=== PATIENT | female | born 1940 | race Caucasian/White ===

== ENCOUNTER 2022-01-22 08:45 | Outpatient (REF) | payer MEDICARE, OTHER, SELFPAY ==
[2022-01-22 10:35] LABS: Albumin Level 4.1 g/dL (3.5-5.0); Calcium 9.4 mg/dL (8.4-10.2)
[2022-01-22 11:02] LABS: Free T4 (Free Thyroxine) 0.86 ng/dL (0.71-1.85); Thyroid Stimulating Hormone 0.78 uIU/mL (0.32-4.0)
== END 2022-01-22 08:46 | disposition home or self-care (01) ==
LOC: HO.10HDL 08:45
PROVIDERS: Visit Provider Internal Medicine Endocrinology, Diabetes & Metabolism
DX: E04.2 Nontoxic multinodular goiter (principal); E21.3 Hyperparathyroidism, unspecified
CPT/HCPCS: 36415; 82040; 82310; 84439; 84443; 99202

== ENCOUNTER → 2022-09-22 08:37 | Outpatient (BNVA) | payer MEDICARE, OTHER, SELFPAY | PROVIDERS: PCP Internal Medicine; Visit Provider Internal Medicine Endocrinology, Diabetes & Metabolism | DX: E04.2 Nontoxic multinodular goiter (principal); E21.3 Hyperparathyroidism, unspecified; E20.9 Hypoparathyroidism, unspecified | CPT/HCPCS: 36415; 84100; 99212 ==

== ENCOUNTER 2022-09-22 09:54 | Outpatient (REF) | payer MEDICARE, OTHER, SELFPAY ==
[2022-09-22 12:37] LABS: Phosphorus 3.8 mg/dL (2.7-4.5)
== END 2022-09-22 09:55 | disposition home or self-care (01) ==
LOC: HO.10HDL 09:54
PROVIDERS: Visit Provider Internal Medicine Endocrinology, Diabetes & Metabolism
DX: Z13.89 Encounter for screening for other disorder (principal)
CPT/HCPCS: 36415; 84100

== ENCOUNTER 2022-09-28 09:51 | Outpatient (REF) | payer MEDICARE, OTHER, SELFPAY ==
[2022-09-28 13:28] LABS: Creatinine, mg/dL 70.45
[2022-09-28 14:02] LABS: Creatinine, 24Hr Urine 0.7 G/Day (1.0-2.0); Total Volume 24 Hour Urine 925 mL
[2022-09-29 20:28] LABS: Calcium, 24 Hr Urine 83 mg/24 h; Calcium/Creatinine Ratio 136 mg/g creat (30-275); Creatinine 24Hr Urine 0.61 g/24 h (0.50-2.15)
== END 2022-09-28 09:52 | disposition home or self-care (01) ==
LOC: HO.10HDLNP 09:51
PROVIDERS: Visit Provider Internal Medicine Endocrinology, Diabetes & Metabolism
DX: E20.9 Hypoparathyroidism, unspecified (principal)
CPT/HCPCS: 82340; 82570

== ENCOUNTER 2022-10-14 08:13 | Outpatient (REF) | payer MEDICARE, OTHER, SELFPAY ==
--- NOTE | ~2022-10-14 | US_ITS ---
EXAMINATION: US THYROID CLINICAL INFORMATION: Nontoxic multinodular goiter. History of parathyroidectomy and reimplantation left forearm. COMPARISON: None available. TECHNIQUE: Linear transducer grayscale and color Doppler examination with attention to the region of the thyroid. FINDINGS: SIZE: Measurements of the thyroid lobes and nodules are given in sagittal, anteroposterior and transverse dimensions respectively. Right Thyroid Lobe: 8.4 x 4.0 x 4.4 cm, volume 77.1 mL. Parenchyma: The gland echotexture is heterogeneous. Thyroid vascularity is increased. Left Thyroid Lobe: 6.9 x 4.2 x 4.1 cm, volume 62.4 mL. Parenchyma: The gland echotexture is heterogeneous. Thyroid vascularity is hypervascular. Isthmus: 1.4 cm in maximum AP dimension. Estimated total number of nodules greater than or equal to 1 cm: 4. Base Manager nodules are described as follows: 1. Location: Right midpole. Size: 3.4 x 1.8 x 3.3 cm, volume 10.6 mL. Nodule characteristics: Composition: Solid/almost completely solid (2). Echogenicity: Hyperechoic (1). Shape: Not taller than wide (0). Margins: Smooth (0). Echogenic Foci: None (0). ACR TI-RADS total points: 3. ACR TI-RADS category: 3. 2. Location: Right lower pole. Size: 2.7 x 1.6 x 2.8 cm, volume 6.3 mL. Nodule characteristics: Composition: Solid/almost completely solid (2). Echogenicity: Hyperechoic (1). Shape: Not taller than wide. Margins: Smooth (0). Echogenic Foci: Microcalcifications. ACR TI-RADS total points: 4. ACR TI-RADS category: 4. 3. Location: Left midpole. Size: 4.2 x 2.0 x 4.6 cm, volume 20.0 mL. Nodule characteristics: Composition: Solid/almost completely solid (2). Echogenicity: Hyperechoic (1). Shape: Not taller than wide (0). Margins: Smooth (0). Echogenic Foci: None. ACR TI-RADS total points: 3. ACR TI-RADS category: 3. 4. Location: Left lower pole. Size: 4.1 x 2.7 x 3.8 cm, volume 22.5 mL. Nodule characteristics: Composition: Solid/almost completely solid (2). Echogenicity: Hyperechoic (1). Shape: Not taller than wide (0). Margins: Smooth (0). Echogenic Foci: None. ACR TI-RADS total points: 3. ACR TI-RADS category: 3. The largest 4 nodules were measured. US/US thyroid IMPRESSION: 4 large thyroid nodules. By ACR BI-RADS recommendation a 6 month follow-up can be performed ACR TI-RADS RECOMMENDATION REFERENCE: Ultrasound-guided fine-needle aspiration, followup ultrasound, no further follow up. * TR1 (0 point) and TR2 (2 points): No FNA or follow up * TR3 (3 points): FNA if more than or equal to 2.5 cm in maximum dimension, followup ultrasound in 1, 3 and 5 years if 1.5 to 2.4 cm in maximum dimension. * TR4 (4-6 points): FNA if more than or equal to 1.5 cm in maximum dimension, followup ultrasound in 1, 2, 3 and 5 years if 1 to 1.4 cm in maximum dimension. * TR5 (more than or equal to 7 points): FNA if more than or equal to 1 cm in maximum dimension, followup ultrasound every year for 5 years if 0.5 to 0.9 cm in maximum dimension. * TR3, TR4 or TR5 nodules that are below the size threshold for follow up receive no follow up. IMPRESSION: Enlarged thyroid gland with multiple bilateral thyroid nodules. The largest nodules are measured.
== END 2022-10-14 08:14 | disposition home or self-care (01) ==
LOC: HO.US 08:13
PROVIDERS: PCP Internal Medicine; Visit Provider Internal Medicine Endocrinology, Diabetes & Metabolism
DX: E04.2 Nontoxic multinodular goiter (principal)
CPT/HCPCS: 76536

== ENCOUNTER 2023-09-23 10:48 | Outpatient (AMB) | payer MEDICARE, OTHER, SELFPAY ==
--- NOTE | 2023-09-23 11:08 | MHC.OFFVIS ---
Intake Vital Signs 09/23/23 11:09 Height 5 ft 6 in Weight 120 lb 5.958 oz BMI 19.4 BP 102/64 Blood Pressure Location Lt brachial Position Sitting Pulse 76 Pulse Source Pulse Oximeter Intake Visit Reasons: MNG F/U-confirmed Intake Note: Patient present today for MNG follow up visit. 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 Wiggins and Dr. webb who is seen in consultation for multinodular thyroid at the request of PCP. Was initially diagnosed with multinodular thyroid in 1987 with thyroid US revealing multiple nodules. Currently denies any dysphagia or hoarseness of voice. Denies sensation of swelling in the neck or difficulty breathing while lying flat. Denies any tenderness in the neck. Denies any palpitations, tremors, weight loss, frequent bowel movements. Denies any ocular complaints, blurred or double vision. Denies hair loss, dry skin, heat or cold intolerance, weight gain, confusion. Denies any history of head or neck irradiation. Denies any family history of thyroid cancer. ? mother has thyroid problems Had biopsy of nodules in the past. Unfortunately, none of the records from the biopsy or pathology is available time consult. Patient self reports that she had a biopsy of left side thyroid nodule is benign and 2018 she had 3 nodules on the right biopsy that was benign and a larger 1 left that was indeterminate Thyroid US: Multiple bilateral thyroid nodules with the largest being in the right lobe being 2.6 x 2.2 x 2.3 cm and the left upper pole being 3.9 x 2.0 x 3.9 cm Labs: Status post left lobectomy by Dr. Greene with benign pathology. A total thyroidectomy was not performed because of previous parathyroid surgery and concern of complication [facility] Medical History (Updated 09/23/23 @ 11:33 by Allen Bee MD) Non-toxic multinodular goiter Hypoparathyroidism Surgical History History of biopsy Hx of basal cell carcinoma excision Hx of endoscopy History of surgery Hx of cataract surgery Hx of melanoma excision Hx of hernia repair Hx of parathyroidectomy Hx of cholecystectomy History of surgery Family History Mother No problems noted. Father Pancreatic cancer Social History Alcohol intake: current Patient Tobacco Use Status: Never used Tobacco Physical Exam Const Other: Healing scar status post left lobectomy Assessment & Plan Assessment & Plan (1) Multinodular goiter (nontoxic): Code(s): E04.2 - Nontoxic multinodular goiter Plan: This 83-year-old white female with a history of primary hyperparathyroidism status post removal of 3-1/2 glands with forearm transplantation as well as multinodular goiter with dominant nodules on both sides status post FNA multiple times. Status post left lobectomy with benign pathology. Plan is to check TSH and free T4 (2) Hyperparathyroidism: Code(s): E21.3 - Hyperparathyroidism, unspecified Plan: Plan for hypoparathyroidism (3) Hypoparathyroidism: Code(s): E20.9 - Hypoparathyroidism, unspecified Plan: Status post parathyroidectomy with hypoparathyroidism. Calcium is low normal on calcitriol and calcium supplementation. Will check calcium albumin and phosphorus keep calcium low normal Orders: Orders Calcium Today E20.9 - Hypoparathyroidism, unspecified Albumin Level Today E20.9 - Hypoparathyroidism, unspecified Phosphorus Today E20.9 - Hypoparathyroidism, unspecified Free T4 (Free Thyroxine) Today E04.2 - Nontoxic multinodular goiter, E20.9 - Hypoparathyroidism, unspecified Thyroid Stimulating Hormone Today E04.2 - Nontoxic multinodular goiter, E20.9 - Hypoparathyroidism, unspecified Coding Level of Care Code Est Pt Level 3 (10266) Diagnoses Multinodular goiter (nontoxic) E04.2 Hyperparathyroidism E21.3 Hypoparathyroidism E20.9
[2023-09-23 11:09] VITALS: BP 102/64; PULSE 76; BMI 19.4
== END 2023-09-23 11:58 | disposition home or self-care (01) ==
PROVIDERS: PCP Internal Medicine; Visit Provider Internal Medicine Endocrinology, Diabetes & Metabolism
DX: E04.2 Nontoxic multinodular goiter (principal); E21.3 Hyperparathyroidism, unspecified; E20.9 Hypoparathyroidism, unspecified
CPT/HCPCS: 99213

== ENCOUNTER → 2023-09-23 10:48 | Outpatient (BNVA) | payer MEDICARE, OTHER, SELFPAY | PROVIDERS: PCP Internal Medicine; Visit Provider Internal Medicine Endocrinology, Diabetes & Metabolism | DX: E20.9 Hypoparathyroidism, unspecified (principal); E04.2 Nontoxic multinodular goiter; E21.3 Hyperparathyroidism, unspecified | CPT/HCPCS: 99212 ==

== ENCOUNTER 2023-10-12 14:43 | Outpatient (REF) | payer MEDICARE, OTHER, SELFPAY ==
[2023-10-12 16:00] LABS: Albumin Level 3.7 g/dL (3.5-5.0)
[2023-10-12 16:19] LABS: Free T4 (Free Thyroxine) 0.77 ng/dL (0.71-1.85); Thyroid Stimulating Hormone 1.41 uIU/mL (0.32-4.0)
== END 2023-10-12 14:44 | disposition home or self-care (01) ==
LOC: HO.LAB 14:43
PROVIDERS: PCP Internal Medicine; Visit Provider Internal Medicine Endocrinology, Diabetes & Metabolism
DX: E20.9 Hypoparathyroidism, unspecified (principal); E04.2 Nontoxic multinodular goiter
CPT/HCPCS: 36415; 82040; 82310; 84100; 84439; 84443

== ENCOUNTER 2024-02-23 10:44 | Outpatient (AMB) | payer MEDICARE, OTHER, SELFPAY ==
[2024-02-23 10:46] VITALS: BP 132/68; PULSE 77; BMI 21.5
--- NOTE | 2024-02-23 10:46 | MHC.OFFVIS ---
Vital Signs 02/23/24 10:46 Height 5 ft 6 in Weight 133 lb 6.075 oz BMI 21.5 BP 132/68 Blood Pressure Location Lt brachial Position Sitting Pulse 77 Pulse Source Pulse Oximeter Intake Visit Reasons: MNG Intake Note: Patient present today for MNG follow up visit. 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 Wiggins and Dr. webb who is seen in consultation for multinodular thyroid at the request of PCP. Was initially diagnosed with multinodular thyroid in 1987 with thyroid US revealing multiple nodules. Currently denies any dysphagia or hoarseness of voice. Denies sensation of swelling in the neck or difficulty breathing while lying flat. Denies any tenderness in the neck. Denies any palpitations, tremors, weight loss, frequent bowel movements. Denies any ocular complaints, blurred or double vision. Denies hair loss, dry skin, heat or cold intolerance, weight gain, confusion. Denies any history of head or neck irradiation. Denies any family history of thyroid cancer. ? mother has thyroid problems Had biopsy of nodules in the past. Unfortunately, none of the records from the biopsy or pathology is available time consult. Patient self reports that she had a biopsy of left side thyroid nodule is benign and 2018 she had 3 nodules on the right biopsy that was benign and a larger 1 left that was indeterminate Thyroid US: Multiple bilateral thyroid nodules with the largest being in the right lobe being 2.6 x 2.2 x 2.3 cm and the left upper pole being 3.9 x 2.0 x 3.9 cm Labs: Status post left lobectomy by Dr. Greene with benign pathology. A total thyroidectomy was not performed because of previous parathyroid surgery and concern of complication [facility] Medical History (Updated 09/23/23 @ 11:33 by Allen Bee MD) Non-toxic multinodular goiter Hypoparathyroidism Surgical History History of biopsy Hx of basal cell carcinoma excision Hx of endoscopy History of surgery Hx of cataract surgery Hx of melanoma excision Hx of hernia repair Hx of parathyroidectomy Hx of cholecystectomy History of surgery Family History Mother No problems noted. Father Pancreatic cancer Social History Alcohol intake: current Patient Tobacco Use Status: Never used Tobacco Physical Exam Const Other: Healing scar status post left lobectomy Assessment & Plan Assessment & Plan (1) Multinodular goiter (nontoxic): Code(s): E04.2 - Nontoxic multinodular goiter Category: Medical Plan: This 83-year-old white female with a history of primary hyperparathyroidism status post removal of 3-1/2 glands with forearm transplantation as well as multinodular goiter with dominant nodules on both sides status post FNA multiple times. Status post left lobectomy with benign pathology. Appears to be clinically and biochemically euthyroid Plan is to have patient follow-up with Dr. Swain in expert thyroid ultrasound was during our practice in a February 2024 endocrine repeat the thyroid ultrasound (2) Hypoparathyroidism: Code(s): E20.9 - Hypoparathyroidism, unspecified Category: Medical Plan: Status post parathyroidectomy with hypoparathyroidism. Calcium is low normal on calcitriol and calcium supplementation. Will continue current management Coding Level of Care Code Est Pt Level 3 (52702) Diagnoses Multinodular goiter (nontoxic) E04.2 Hypoparathyroidism E20.9
== END 2024-02-23 11:09 | disposition home or self-care (01) ==
PROVIDERS: PCP Internal Medicine; Visit Provider Internal Medicine Endocrinology, Diabetes & Metabolism
DX: E04.2 Nontoxic multinodular goiter (principal); E20.9 Hypoparathyroidism, unspecified
CPT/HCPCS: 99213

== ENCOUNTER → 2024-02-23 10:44 | Outpatient (BNVA) | payer MEDICARE, OTHER, SELFPAY | PROVIDERS: PCP Internal Medicine; Visit Provider Internal Medicine Endocrinology, Diabetes & Metabolism | DX: E04.2 Nontoxic multinodular goiter (principal); E20.9 Hypoparathyroidism, unspecified | CPT/HCPCS: 99212 ==

== ENCOUNTER 2024-09-21 08:45 | Outpatient (AMB) | payer MEDICARE, OTHER, SELFPAY ==
--- NOTE | 2024-09-21 08:50 | A.OFFVIS_ITS ---
Vital Signs 09/21/24 08:53 Height 5 ft 6 in Weight 131 lb 9.855 oz BMI 21.2 BP 116/72 Blood Pressure Location Lt brachial Position Sitting Pulse 77 Pulse Source Pulse Oximeter Pulse Oximetry (%) 98 Oxygen Delivery Method Room Air Intake Visit Reasons: MNG/hypoparathyroidism Intake Note: Patient present today for MNG and hypoparathyroidism office visit. 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 Accompanied by: Self / Same As Patient Allergies codeine Allergy (Unknown, Verified 09/21/24 08:54) stomach pain latex Allergy (Unknown, Verified 09/21/24 08:54) Rash Penicillins Allergy (Unknown, Verified 09/21/24 08:54) Diarrhea Medication List - Last Reconciled 09/21/24 by Carola Swain MD calcitriol 0.25 mcg PO Q OTHER DAY cholecalciferol (vitamin D3) 25 mcg PO DAILY dorzolamide-timolol 22.3-6.8 mg/mL ophthalmic (eye) ONCE PRN pravastatin 20 mg PO DAILY verapamil 120 mg PO BID HPI Comments Details: 84-year-old female with past medical history significant for 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 Wanda Greene at [facility] with benign pathology, who is being followed for right-sided thyroid nodules. Also has history of primary hyperparathyroidism status post 3-1/2 gland parathyroidectomy at [facility] in 1983, status post completion p arathyroidectomy at [facility] in October 2002 with removal of parathyroid remnant an approximately 30 mg fragment autotransplantation into the left forearm by Dr. Roblero. Now followed for hyperparathyroidism as well. Multinodular goiter Diagnosed with thyroid nodules in Had biopsy of nodules in the past, no old records of biopsy available. Apparently had biopsy in 1997 of a left-sided nodule which was benign Apparently sometime in the past a biopsy of this left-sided nodule also yielded microfollicular cytology (? Flus or follicular neoplasm? ). However when she was undergoing completion parathyroidectomy in 2002, the surgeon was reluctant to perform plan thyroidectomy for multinodular goiter as the parathyroid remnant was adherent to the right recurrent laryngeal nerve. 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 In 2019, a follow up ultrasound of her goiter/nodule showed increase in size of some of her nodules. 08/31/2018: FNA of the dominant 3.2 cm right midpole and 5.2 cm left midpole nodules was done, cytology of the right lobe was benign, cytology of the left lobe was AUS, Afirma came back suspicious for malignancy category. No aggressive/fusion mutations. 08/29/2021: Neck ultrasound at [facility] described multiple bilateral thyroid nodules including 2.6 cm right inferior pole and 2.1 cm right midpole TR 4 nodules, and a 3.9 cm left superior pole and 3.6 cm left inferior pole TR 3 nodules. 10/14/2022: Thyroid ultrasound at [place] [facility] described 3.4 cm TR 3 right midpole nodule, 2.8 cm TR 4 right inferior pole nodule, 4.6 cm TR 3 left midpole nodule and a 4.1 cm TR 3 left inferior pole nodule. She was subsequently referred to Dr. Wanda Greene at [facility] for evaluation for thyroidectomy. No compressive symptoms apparently at that time. It was decided at that time to proceed with left lobectomy as there was a concern of severe paratracheal scarring in the setting of prior surgeries. No personal history of head or neck radiation, no family history of thyroid cancers or endocrine tumors. 08/10/2023 status post left lobectomy with Dr. Wanda Greene at [facility]: Pathology showed follicular nodular disease with nodules Interval history 2015 esophagus nicked during surgery , on and off trouble swallowing not concerning to her No other compressive symptoms No recent TFTs, intermittent diarrhea and constipation with IBS , following with GI no heat or cold intolerance No excessive fatigue Hypoparathyroidism Status post 3-1/2 gland parathyroidectomy at [facility] in 1983 for primary hyperparathyroidism status post completion parathyroidectomy at [facility] in October 2002 with removal of parathyroid dominant and proximately 30 mg fragment autotransplantation in the left forearm by Dr. Wright. Enlarged parathyroid remnant was described to be adherent to the right recurrent laryngeal nerve. Despite autotransplantation of the parathyroid she developed postoperative hypoparathyroidism and has remained on calcitriol 0.5 mcg daily and calcium supplements. Interval history Currently not on any calcium supplements On calcitriol o.25 mcg every other day and 1000 units of vitamin D daily In the morning some paresthesias in her hands more so on the right No recent calcium level in our system Milk not regulary Yogurt one serving activia daily Cheese here and there no fractures Has osteoporosis?? Gets bone density at her obgyn Dr. Soto, not on treatment per patient after discussion with Dr. Soto treatment wasnt warranted? Laboratory Tests 09/28/22 10/12/23 08:00 15:00 Calcium 9.0 Phosphorus 4.0 Albumin 3.7 TSH 1.41 Free T4 0.77 Ur 24 Hour Volume 925 Ur Creatinine mg/dL 70.45 Ur Creatinine 24 Hour 0.7 L Ur Calcium 24 Hr 83 Calcium/Creat 24 Hr 136 US THYROID 10/14/22 CLINICAL INFORMATION: Nontoxic multinodular goiter. History of parathyroidectomy and reimplantation left forearm. COMPARISON: None available. TECHNIQUE: Linear transducer grayscale and color Doppler examination with attention to the region of the thyroid. FINDINGS: SIZE: Measurements of the thyroid lobes and nodules are given in sagittal, anteroposterior and transverse dimensions respectively. Right Thyroid Lobe: 8.4 x 4.0 x 4.4 cm, volume 77.1 mL. Parenchyma: The gland echotexture is heterogeneous. Thyroid vascularity is increased. Left Thyroid Lobe: 6.9 x 4.2 x 4.1 cm, volume 62.4 mL. Parenchyma: The gland echotexture is heterogeneous. Thyroid vascularity is hypervascular. Isthmus: 1.4 cm in maximum AP dimension. Estimated total number of nodules greater than or equal to 1 cm: 4. Goal Umpire nodules are described as follows: 1. Location: Right midpole. Size: 3.4 x 1.8 x 3.3 cm, volume 10.6 mL. Nodule characteristics: Composition: Solid/almost completely solid (2). Echogenicity: Hyperechoic (1). Shape: Not taller than wide (0). Margins: Smooth (0). Echogenic Foci: None (0). ACR TI-RADS total points: 3. ACR TI-RADS category: 3. 2. Location: Right lower pole. Size: 2.7 x 1.6 x 2.8 cm, volume 6.3 mL. Nodule characteristics: Composition: Solid/almost completely solid (2). Echogenicity: Hyperechoic (1). Shape: Not taller than wide. Margins: Smooth (0). Echogenic Foci: Microcalcifications. ACR TI-RADS total points: 4. ACR TI-RADS category: 4. 3. Location: Left midpole. Size: 4.2 x 2.0 x 4.6 cm, volume 20.0 mL. Nodule characteristics: Composition: Solid/almost completely solid (2). Echogenicity: Hyperechoic (1). Shape: Not taller than wide (0). Margins: Smooth (0). Echogenic Foci: None. ACR TI-RADS total points: 3. ACR TI-RADS category: 3. 4. Location: Left lower pole. Size: 4.1 x 2.7 x 3.8 cm, volume 22.5 mL. Nodule characteristics: Composition: Solid/almost completely solid (2). Echogenicity: Hyperechoic (1). Shape: Not taller than wide (0). Margins: Smooth (0). Echogenic Foci: None. ACR TI-RADS total points: 3. ACR TI-RADS category: 3. The largest 4 nodules were measured. US/US thyroid IMPRESSION: 4 large thyroid nodules. By ACR BI-RADS recommendation a 6 month follow-up can be performed [facility] Medical History (Updated 09/21/24 @ 09:41 by Carola Swain MD) Osteoporosis Non-toxic multinodular goiter Hypoparathyroidism Surgical History History of biopsy Hx of basal cell carcinoma excision Hx of endoscopy History of surgery Hx of cataract surgery Hx of melanoma excision Hx of hernia repair Hx of parathyroidectomy Hx of cholecystectomy History of surgery Family History Mother No problems noted. Father Pancreatic cancer Social History Alcohol intake: current Patient Tobacco Use Status: Never used Tobacco Physical Exam Vital Signs: Last Vital Signs Pulse 77 09/21/24 08:53 BP 116/72 09/21/24 08:53 Pulse Ox 98 09/21/24 08:53 Oxygen Delivery Method Room Air 09/21/24 08:53 BMI result Body Mass Index 21.2 Assessment & Plan Assessment & Plan (1) Non-toxic multinodular goiter: Code(s): E04.2 - Nontoxic multinodular goiter Category: Medical Plan: 84-year-old female with no family history of thyroid cancer, with no personal history of head or neck radiation, with nontoxic multinodular goiter diagnosed in the , who is status post left lobectomy with Dr. Wanda Greene at [facility] in July 2023 with benign pathology showing follicular nodular disease, who is here today for follow up of right-sided nodules. She has not had a follow up ultrasound since her surgery in 2023. We will obtain 1. Also did not require levothyroxine after the surgery. Currently does not have any concerning compressive symptoms or symptoms of hypo or hyperthyroidism. Plan: -ordered ultrasound of the thyroid -ordered TSH and free T4 (2) Hypoparathyroidism: Code(s): E20.9 - Hypoparathyroidism, unspecified Category: Medical Qualifiers: Hypoparathyroidism type: other hypoparathyroidism Qualified Code(s): E20.89 - Other specified hypoparathyroidism Plan: 84-year-old female with history of primary hyperparathyroidism status post 3- 1/2 gland parathyroidectomy at [facility] in 1983 for primary hyperparathyroidism status post completion parathyroidectomy at [facility] in October 2002 with removal of parathyroid dominant and proximately 30 mg fragment autotransplantation in the left forearm by Dr. Wright. Enlarged parathyroid remnant was described to be adherent to the right recurrent laryngeal nerve. Despite autotransplantation of the parathyroid she developed postoperative hypoparathyroidism and has remained on calcitriol 0.5 mcg daily and calcium supplements after. Currently she is not on any calcium supplements, taking calcitriol 0.25 mcg every other day and 1000 units of vitamin-D daily. She does have some intermittent symptoms of paresthesias in her hands. No recent calcium levels in the system but she says when she had blood work done with primary Care, no concerns about low calcium levels. We will obtain these. She also has a history of osteoporosis, follows with OBGYN, Dr. Raymond Soto, and gets bone density is regularly with the him done at [facility], and apparently per patient did not warrant treatment for borderline osteoporosis. I will obtain the records for these. Plan: -continue calcitriol 0.25 mcg every other day -continue 1000 units of vitamin-D daily -obtain blood work with calcium, PTH, albumin, phosphorus, BMP levels, given history of osteoporosis we will also check bone resorption markers -obtain records from OBGYN and bone densities -follow up in 8 weeks to discuss results (3) Osteoporosis: Code(s): M81.0 - Age-related osteoporosis without current pathological fracture Category: Medical Qualifiers: Osteoporosis type: age-related Presence of current pathological fracture: without current pathological fracture Qualified Code(s): M81.0 - Age- related osteoporosis without current pathological fracture Plan: See above Plan I spent 30 minutes in reviewing the record, seeing the patient and documenting in the medical record. Orders: Orders US thyroid Today E04.2 - Nontoxic multinodular goiter Free T4 (Free Thyroxine) Today E04.2 - Nontoxic multinodular goiter Albumin Level Today E20.9 - Hypoparathyroidism, unspecified Calcium Today E20.9 - Hypoparathyroidism, unspecified Vitamin D 25-OH Total Today E20.9 - Hypoparathyroidism, unspecified Basic Metabolic Panel Today E20.9 - Hypoparathyroidism, unspecified Alkaline Phosphatase Bone Today M81.0 - Age-related osteoporosis without current pathological fracture Thyroid Stimulating Hormone Today E04.2 - Nontoxic multinodular goiter Phosphorus Today E20.9 - Hypoparathyroidism, unspecified Parathyroid Hormone Intact Today E20.9 - Hypoparathyroidism, unspecified Collagen Type I C-Telopeptide Today M81.0 - Age-related osteoporosis without current pathological fracture Patient Instructions: Do blood work today as soon as you are done with my appointment before eating anything Do ultrasound of the thyroid, someone we will call you to schedule this follow up in 8 weeks to discuss results Continue vitamin-D 1000 units daily and calcitriol 0.25 mcg every other day as you are already taking Coding Level of Care Code Est Pt Level 4 (54201) Diagnoses Non-toxic multinodular goiter E04.2 Other hypoparathyroidism E20.89 Hypoparathyroidism type: other hypoparathyroidism Age-related osteoporosis without current pathological fracture M81.0 Osteoporosis type: age-related Presence of current pathological fracture: without current pathological fracture Time Spent (min) 30
[2024-09-21 08:53] VITALS: BP 116/72; PULSE 77; O2SAT 98; BMI 21.2
--- OUTSIDE RECORDS SUMMARY | 2024-09-21 09:25 | XMS_ITS | Patient Health Record ---
Author Organization [facility] Address [address] [place] [address] Care Team Providers Care Route Manager Name Role Phone Tavon Cochran Unavailable [phone] Scotty PINEDA, Shashank Unavailable Unavailable Reason For Referral No Information Medications Medication SIG (Take, Route, Frequency, Duration) Notes Start Date End Date Status Vitamin D3 (cholecalciferol (vitamin d3)) 09/06/2012 Active Tylenol (acetaminophen) 09/06/2012 Active pravastatin 09/06/2012 Active Ocuvite (vit c-vit e-oixnkc-mwx-om-3) 09/06/2012 Active hydroCHLOROthiazide 12.5 MG 1 tablet by mouth every morning Oral 09/06/2012 Active Travatan Z (travoprost) 09/06/2012 Active Advil (ibuprofen) 09/06/2012 A ctive Verapamil 09/06/2012 Active labetalol 09/06/2012 Active Calcitriol Take 1 capsule by mouth twice a day 14 09/06/2012 Active Acidophilus (l.acidoph & sali-b.bif-s.therm) 09/06/2012 Active Problems Problem Type SNOMED Code ICD Code Onset Dates Problem Status W/U Status Risk Notes Problem 784.7-Epistaxi s (784.7) 09/06/2012 Active confirmed Problem Allergic rhinitis (96075409) 477.9-Rhinitis Allergic (477.9) 09/06/2012 Active confirmed Plan Of Treatment No Information Insurance Providers Payer Name Payer Address Payer Phone Subscriber Number Group Number Insured Name Patient Relationship to Insured Coverage Start Date Coverage End Date Medicare Part B [employer] [address] [place] [phone] [id number] Kaitlyn Sotelo Self - patient is the insured [facility] [address] [address] [place] [address] [phone] [id number] Kaitlyn Sotelo Self - patient is the insured Medical (General) History Surgical History Surgery Date(Month/Year) Skin Cancer Removed Hernia repair Tonsillectomy gall bladder Parathyroidectomy
--- OUTSIDE RECORDS SUMMARY | 2024-09-21 09:25 | XMS_ITS | Clinical Summary ---
Author Organization [facility] Address [address] [place] [address] Care Team Providers Care Licensed Massage Therapist Name Role Phone Unavailable Primary Care Provider Unavailabl e Social History Tobacco Use Types Packs/Day Years Used Date Smoking Tobacco: Never Assessed Comments Unknown Sex and Gender Information Value Date Recorded Sex Assigned at Not on file Legal Sex Female 7:31 PM EST Gender Identity Not on file Sexual Orientation Not on file Plan of Treatment Upcoming Encounters Date Type Department Care Team ([facility] st Contact Info) Description 11/15/2024 1:40 PM EDT Office Visit Gastroenterology - [address] [place] [address] [phone] Karrie Gutierrez MD [address] [facility] [address] [place] [address] Health Maintenance Due Date Last Done Comments DTaP,Tdap,and Td Vaccines (1 - Tdap) 1960 Pneumococcal Vaccine: 50+ Ye ars (1 of 1 - PCV) 1991 Zoster Vaccines (1 of 2) 1991 RSV Immunization Patients 60 + Years Old (1 - 1-dose 75+ series) 2016 Depression Screening 06/20/2022 Falls Risk Assessment 06/20/2022 Medicare Annual Wellness Visit 06/20/2022 Osteoporosis Screening (Bone Density Screening) 06/20/2022 Social Influencers of Health Screening 06/20/2022 COVID-19 Vaccine ( - 2023-2 5 season) 2024 Influenza Vaccine (#1) 2024 HIB Vaccines Aged Out No longer eligi ble based on patient's age to complete this topic HPV Vaccines Aged Out No longer eligi ble based on patient's age to complete this topic Hepatitis A Vaccines Aged Out No long er eligible based on patient's age to complete this topic Hepatitis B Vaccines Aged Out No long er eligible based on patient's age to complete this topic IPV Vaccines Aged Out No longer eligi ble based on patient's age to complete this topic MMR Vaccines Aged Out No longer eligi ble based on patient's age to complete this topic Meningococcal ACWY Vaccine Aged Out N o longer eligible based on patient's age to complete this topic Meningococcal B Vacine Aged Out No lo nger eligible based on patient's age to complete this topic RSV Immunization Patients Un andrew 20 months Aged Out No longer eligible b ased on patient's age to complete this topic Varicella Vaccines Aged Out No longer eligible based on patient's age to complete this topic Insurance MEDICARE
== END 2024-09-21 09:27 | disposition home or self-care (01) ==
PROVIDERS: PCP Internal Medicine; Visit Provider Student in an Organized Health Care Education/Training Program
DX: E04.2 Nontoxic multinodular goiter (principal); E20.89 Other specified hypoparathyroidism; M81.0 Age-related osteoporosis without current pathological fracture
CPT/HCPCS: 99214

== ENCOUNTER 2024-09-21 09:30 | Outpatient (REF) | payer MEDICARE, OTHER, SELFPAY ==
--- OUTSIDE RECORDS SUMMARY | 2024-09-21 10:46 | XMS_ITS | Clinical Summary ---
Author Organization [facility] Address [address] [place] [address] Care Team Providers Care Securities Lending Trader Name Role Phone Unavailable Primary Care Provider Unavailabl e Social History Tobacco Use Types Packs/Day Years Used Date Smoking Tobacco: Never Assessed Comments Unknown Sex and Gender Information Value Date Recorded Sex Assigned at Not on file Legal Sex Female 7:31 PM EST Gender Identity Not on file Sexual Orientation Not on file Plan of Treatment Upcoming Encounters Date Type Department Care Team ([facility] st Contact Info) Description 11/15/2024 1:40 PM EDT Office Visit Gastroenterology - [address] [place] [address] [phone] Karrie Gutierrez MD [address] [facility] [address] [place] [address] Health Maintenance Due Date Last Done Comments [...]
[2024-09-21 11:06] LABS: Albumin Level 3.9 g/dL (3.5-5.0); Anion Gap 11 (12-20); Blood Urea Nitrogen 23 mg/dL (9-16); Calcium 9.5 mg/dL (8.4-10.2); Carbon Dioxide 28 mmol/L (22-29); Chloride 105 mmol/L (96-108); Estimated Glomerular Filt Rate 46; Glucose Random 128 mg/dL (60-115); Potassium 4.4 mmol/L (3.3-5.1); Sodium 140 mmol/L (135-145)
[2024-09-21 11:18] LABS: Parathyroid Hormone Intact 272.5 pg/mL (8.7-77.1)
[2024-09-21 11:25] LABS: Free T4 (Free Thyroxine) 0.87 ng/dL (0.71-1.85); Thyroid Stimulating Hormone 1.43 uIU/mL (0.32-4.0); Vitamin D 25-OH Total 51.3 ng/mL (>30)
[2024-09-24 20:59] LABS: Alkaline Phosphatase Bone 16.9 mcg/L (see note)
[2024-09-26 22:33] LABS: Collagen Type I C-Telopeptide 709 pg/mL (see note)
== END 2024-09-21 09:31 | disposition home or self-care (01) ==
LOC: HO.10HDL 09:30
PROVIDERS: Visit Provider Student in an Organized Health Care Education/Training Program
DX: E20.9 Hypoparathyroidism, unspecified (principal); E20.89 Other specified hypoparathyroidism; E04.2 Nontoxic multinodular goiter; M81.0 Age-related osteoporosis without current pathological fracture
CPT/HCPCS: 36415; 80048; 82040; 82306; 82523; 83970; 84075; 84100; 84439; 84443; 99212

== ENCOUNTER 2024-10-03 15:38 | Outpatient (REF) | payer MEDICARE, OTHER, SELFPAY ==
--- NOTE | ~2024-10-03 | US_ITS ---
EXAMINATION: US THYROID HISTORY: E04.2 - Nontoxic multinodular goiter TECHNIQUE: Real-time grayscale ultrasound imaging was performed and images were reviewed. COMPARISON: Comparison is made with the prior examination dated 10/14/2022. FINDINGS: SIZE: The right thyroid lobe measures 7.1 x 3.5 x 3.7 cm. The left thyroid lobe is surgically absent. FLOW: Flow to the gland is increased. ECHOGENICITY: The echotexture of the gland is heterogeneous. NODULES: Right-sided nodules are identified as described below: Nodule #: 1 Location: Midportion of the right thyroid lobe measuring 3.7 x 1.8 x 3.3 cm (previously 3.4 x 1.8 x 3.3 cm). Shape: Wider than tall (0 points) Margins: Smooth (0 points) Echotexture: Isoechoic (1 point) Composition: Mostly solid (2 points) Calcifications: None (0 points) Total points: 3 TIRADS: TR3: Mildly suspicious. Nodule #: 2 Location: Mid to lower pole measuring 1.9 x 0.9 x 2.1 cm (previously 2.1 x 1.2 x 1.8 cm). Shape: Wider than tall (0 points) Margins: Smooth (0 points) Echotexture: Hypoechoic (2 points) Composition: Mostly solid (2 points) Calcifications: None (0 points) Total points: 4 TIRADS: TR4: Moderately suspicious. US/US thyroid IMPRESSION: Right thyroid nodules as described above, similar in size to the prior study. ACR TI-RADS Guidelines TR1: Benign, No follow-up or biopsy required TR2: Not Suspicious, No biopsy indicated TR3: Mildly Suspicious, FNA if >= 2.5 cm, Follow if >= 1.5 cm TR4: Moderately Suspicious, FNA if >= 1.5 cm, Follow if >= 1.0 cm TR5: Highly Suspicious, FNA if >= 1.0 cm, Follow if >= 0.5 cm Electronically signed by: Allen Dmuont MD 10/04/2024 11:38 AM EDT
--- OUTSIDE RECORDS SUMMARY | 2024-10-03 18:27 | XMS_ITS | Clinical Summary ---
Author Organization [facility] Address [address] [place] [address] Care Team Providers Care Automobile Or Truck Rental Dispatcher Name Role Phone Unavailable Primary Care Provider Unavailabl e Social History Tobacco Use Types Packs/Day Years Used Date Smoking Tobacco: Never Assessed Comments Unknown Sex and Gender Information Value Date Recorded Sex Assigned at Not on file Legal Sex Female 7:31 PM EST Gender Identity Not on file Sexual Orientation Not on file Plan of Treatment Upcoming Encounters Date Type Department Care Team ([facility] st Contact Info) Description 11/15/2024 1:40 PM EDT Office Visit Gastroenterology - [address] [place] [address] [phone] Karrie Gutierrez MD [address] [facility] [address] [place] [address] Health Maintenance Due Date Last Done Comments [...]
--- OUTSIDE RECORDS SUMMARY | 2024-10-03 18:27 | XMS_ITS | Patient Health Record ---
Author Organization [facility] Address [address] [place] [address] Care Team Providers Care Phlebotomist Lab Assistant Name Role Phone Tavon Cochran Unavailable [phone] Scotty PINEDA, Shashank Unavailable Unavailable Reason For Referral No Information Medications Medication SIG (Take, Route, Frequency, Duration) Notes Start Date End Date Status Vitamin D3 (cholecalciferol (vitamin d3)) 09/06/2012 Active Tylenol (acetaminophen) 09/06/2012 Active pravastatin 09/06/2012 Active Ocuvite (vit c-vit n-lhivvh-zba-om-3) 09/06/2012 Active hydroCHLOROthiazide 12.5 MG 1 tablet [...] (784.7) 09/06/2012 Active confirmed Problem Allergic rhinitis ([id number]) 477.9-Rhinitis Allergic (477.9) 09/06/2012 Active confirmed Plan Of Treatment No Information Insurance Providers Payer Name Payer Address Payer Phone Subscriber Number Group Number Insured Name Patient Relationship to Insured Coverage Start Date Coverage End Date Medicare Part B [employer] [address] [place] [phone] [id number] Kaitlyn Sotelo Self - patient is the insured [facility] [address] [address] [place] [address] [phone] [id number] Kaitlyn Sotelo Self - patient is the insured Medical (General) History Surgical History Surgery Date(Month/Year) Skin Cancer Removed Hernia repair Tonsillectomy gall bladder Parathyroidectomy
== END 2024-10-03 15:39 | disposition home or self-care (01) ==
LOC: HO.US 15:38
PROVIDERS: PCP Internal Medicine; Visit Provider Student in an Organized Health Care Education/Training Program
DX: E04.2 Nontoxic multinodular goiter (principal)
CPT/HCPCS: 76536

== ENCOUNTER → 2024-10-03 15:40 | Outpatient (BNV) | payer MEDICARE, OTHER, SELFPAY | PROVIDERS: PCP Internal Medicine; Visit Provider Radiology Diagnostic Radiology | DX: E04.2 Nontoxic multinodular goiter (principal) | CPT/HCPCS: 76536 ==

== ENCOUNTER 2024-10-19 09:51 | Outpatient (REF) | payer MEDICARE, OTHER, SELFPAY ==
--- OUTSIDE RECORDS SUMMARY | 2024-10-19 10:31 | XMS_ITS | Clinical Summary ---
Author Organization [facility] Address [address] [place] [address] Care Team Providers Care Header Operator Name Role Phone Unavailable Primary Care Provider Unavailabl e Social History Tobacco Use Types Packs/Day Years Used Date Smoking Tobacco: Never Assessed Comments Unknown Sex and Gender Information Value Date Recorded Sex Assigned at Not on file Legal Sex Female 7:31 PM EST Gender Identity Not on file Sexual Orientation Not on file Plan of Treatment Upcoming Encounters Date Type Department Care Team ([facility] st Contact Info) Description 11/15/2024 1:40 PM EDT Office Visit Gastroenterology - [address] [place] [address] [phone] Karrie Gutierrez MD [address] [facility] [address] [place] [address] Health Maintenance Due Date Last Done Comments DTaP,Tdap,and Td Vaccines (1 - Tdap) 1960 Pneumococcal Vaccine: 50+ Ye ars (1 of 1 - PCV) 1991 Zoster Vaccines (1 of 2) 1991 RSV Immunization Adult Patie nts (1 - 1-dose 75+ series) 2016 Depression [...]
--- OUTSIDE RECORDS SUMMARY | 2024-10-19 10:31 | XMS_ITS | Patient Health Record ---
Author Organization [facility] Address [address] [place] [address] Care Team Providers Care Private Sector Executive Name Role Phone Tavon Cochran Unavailable [phone] Scotty PINEDA, Shashank Unavailable Unavailable Reason For Referral No Information Medications Medication SIG (Take, Route, Frequency, Duration) Notes Start Date End Date Status Vitamin D3 (cholecalciferol (vitamin d3)) 09/06/2012 Active Tylenol (acetaminophen) 09/06/2012 Active pravastatin 09/06/2012 Active Ocuvite (vit c-vit s-[id number]-rso-om-3) 09/06/2012 Active hydroCHLOROthiazide 12.5 MG 1 tablet [...] (784.7) 09/06/2012 Active confirmed Problem Allergic rhinitis (87449183) 477.9-Rhinitis Allergic (477.9) 09/06/2012 Active confirmed Plan Of Treatment No Information Insurance Providers Payer Name Payer Address Payer Phone Subscriber Number Group Number Insured Name Patient Relationship to Insured Coverage Start Date Coverage End Date Medicare Part B [employer] [address] [place] [phone] [id number] Kaitlyn Sotelo Self - patient is the insured [facility] [address] [address] [place] [address] [id number] Kaitlyn Sotelo Self - patient is the insured Medical (General) History Surgical History Surgery Date(Month/Year) Skin Cancer Removed Hernia repair Tonsillectomy gall bladder Parathyroidectomy
[2024-10-19 14:06] LABS: Albumin Level 3.8 g/dL (3.5-5.0); Anion Gap 11 (12-20); Blood Urea Nitrogen 25 mg/dL (9-16); Carbon Dioxide 28 mmol/L (22-29); Chloride 106 mmol/L (96-108); Estimated Glomerular Filt Rate > 60; Glucose Random 108 mg/dL (60-115); Phosphorus 3.7 mg/dL (2.7-4.5); Potassium 4.1 mmol/L (3.3-5.1); Sodium 141 mmol/L (135-145)
[2024-10-19 14:13] LABS: Parathyroid Hormone Intact 130.3 pg/mL (8.7-77.1)
[2024-10-19 14:16] LABS: Vitamin D 25-OH Total 51.6 ng/mL (>30)
[2024-10-20 12:39] LABS: Calcium, Ionized 4.9 mg/dL (4.7-5.5)
== END 2024-10-19 09:52 | disposition home or self-care (01) ==
LOC: HO.10HDL 09:51
PROVIDERS: Visit Provider Student in an Organized Health Care Education/Training Program
DX: E20.89 Other specified hypoparathyroidism (principal)
CPT/HCPCS: 36415; 80048; 82040; 82306; 82330; 83970; 84100

== ENCOUNTER 2024-11-16 08:47 | Outpatient (AMB) | payer MEDICARE, OTHER, SELFPAY ==
[2024-11-16 08:49] VITALS: BP 126/76; PULSE 88; O2SAT 97; BMI 21.1
--- NOTE | 2024-11-16 08:49 | MHC.OFFVIS ---
Vital Signs 11/16/24 08:49 Height 5 ft 6 in Weight 130 lb 15.273 oz BMI 21.1 BP 126/76 Blood Pressure Location Lt brachial Position Sitting Pulse 88 Pulse Source Pulse Oximeter Pulse Oximetry (%) 97 Oxygen Delivery Method Room Air Intake Visit Reasons: MNG/hypoparathyroidism Intake Note: Patient present today for MNG and hypoparathyroidism office visit. 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 Wanda Greene at [facility] with benign pathology, who is being followed for right-sided thyroid nodules. Also has history of primary hyperparathyroidism status post 3-1/2 gland parathyroidectomy at [facility] in 1983, status post completion parathyroidectomy at [facility] in October 2002 with removal of parathyroid remnant an approximately 30 mg fragment autotransplantation into the left forearm by Dr. Roblero. Now followed for hyperparathyroidism as well. Multinodular goiter Diagnosed with thyroid nodules in Had biopsy of nodules in the past, no old records of biopsy available. Apparently had biopsy in 1997 of a left-sided nodule which was benign Apparently sometime in the past a biopsy of this left-sided nodule also yielded microfollicular cytology (? Flus or follicular neoplasm? ). However when she was undergoing completion parathyroidectomy in 2002, the surgeon was reluctant to perform plan thyroidectomy for multinodular goiter as the parathyroid remnant was adherent to the right recurrent laryngeal nerve. 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 In 2019, a follow up ultrasound of her goiter/nodule showed increase in size of some of her nodules. 08/31/2018: FNA of the dominant 3.2 cm right midpole and 5.2 cm left midpole nodules was done, cytology of the right lobe was benign, cytology of the left lobe was AUS, Afirma came back suspicious for malignancy category. No aggressive/fusion mutations. 08/29/2021: Neck ultrasound at [facility] described multiple bilateral thyroid nodules including 2.6 cm right inferior pole and 2.1 cm right midpole TR 4 nodules, and a 3.9 cm left superior pole and 3.6 cm left inferior pole TR 3 nodules. 10/14/2022: Thyroid ultrasound at [place] described 3.4 cm TR 3 right midpole nodule, 2.8 cm TR 4 right inferior pole nodule, 4.6 cm TR 3 left midpole nodule and a 4.1 cm TR 3 left inferior pole nodule. She was subsequently referred to Dr. Wanda Greene at [facility] for evaluation for thyroidectomy. No compressive symptoms apparently at that time. It was decided at that time to proceed with left lobectomy as there was a concern of severe paratracheal scarring in the setting of prior surgeries. No personal history of head or neck radiation, no family history of thyroid cancers or endocrine tumors. 08/10/2023 status post left lobectomy with Dr. Wanda Greene at [facility]: Pathology showed follicular nodular disease with nodules Interval history 2015 esophagus nicked during surgery , on and off trouble swallowing not concerning to her No other compressive symptoms no heat or cold intolerance No excessive fatigue Ultrasound images reviewed from September 2024 which shows stable size of the right-sided nodules and normal TFTs from September 2024 History of Hypoparathyroidism status post resection Osteoporosis Status post 3-1/2 gland parathyroidectomy at [facility] in 1983 for primary hyperparathyroidism status post completion parathyroidectomy at [facility] in October 2002 with removal of parathyroid dominant and proximately 30 mg fragment autotransplantation in the left forearm by Dr. Wright. Enlarged parathyroid remnant was described to be adherent to the right recurrent laryngeal nerve. Despite autotransplantation of the parathyroid she developed postoperative hypoparathyroidism and has remained on calcitriol 0.5 mcg daily and calcium supplements. Interval history 09/21/24 Was taking calcitriol 0.25 mcg every other day up until 10/04/2024 and we stopped this as blood work from September 2024 showed PTH elevated Currently not on any calcium supplements On calcitriol o.25 mcg every other day and 1000 units of vitamin D daily In the morning some paresthesias in her hands more so on the right No recent calcium level in our system Milk not regulary Yogurt one serving activia daily Cheese here and there no fractures Interval history 11/16/2024 Blood work from 09/21/2024 showed PTH elevated at 272.5 with normal calcium levels on the higher side at 9.5 with albumin of 4. 10/04/2024: Asked her to stop calcitriol 0.25 mcg every other day and blood work repeated on 10/19/2024 still showed normal calcium levels of 9 with ionized calcium of 4.9, phosphorus of 3.7, albumin of 3.8, PTH intact at 130.3. Vitamin-D of 51.6. Normal kidney function. It looks like she has a recurrence of hyperparathyroidism, but given her age and history of multiple neck surgeries, were not going to consider surgery. At this point we should manage her osteoporosis, bone density records obtained from Dr. Main's office showed last bone density was February 2022 which showed osteopenia of the spine with T-score of --1.6, osteopenia of the left femoral neck with T-score of-2.1, osteoporosis of the left total hip with T-score of-2.7, osteoporosis of the left forearm with T-score of-3.4. Physical exam General: sitting comfortably in no acute distress HEENT: normocephalic/atraumatic, moist oral mucosa Neck: supple, Cardiac: normal heart sounds Pulm: normal breath sounds B/L, no added breath sounds Abd: not distended, no tenderness Extremities: no edema, no signs of myxedema Neuro: AAO x3, Speech: normal, no facial droop, moving all 4 extremities Laboratory Tests 09/28/22 10/12/23 08:00 15:00 Calcium 9.0 Phosphorus 4.0 Albumin 3.7 TSH 1.41 Free T4 0.77 Ur 24 Hour Volume 925 Ur Creatinine mg/dL 70.45 Ur Creatinine 24 Hour 0.7 L Ur Calcium 24 Hr 83 Calcium/Creat 24 Hr 136 Laboratory Tests 10/12/23 09/21/24 15:00 09:33 TSH 1.41 1.43 Free T4 0.77 0.87 Laboratory Tests 09/28/22 09/21/24 10/19/24 08:00 09:33 10:00 Creatinine 1.13 0.88 Estimated GFR 46 > 60 Calcium 9.5 9.0 Ionized Calcium 4.9 Phosphorus 4.0 3.7 Alk Phos Bone Specific 16.9 Albumin 3.9 3.8 Collgn I C-Telopeptide 709 25-OH Vitamin D Total 51.3 51.6 TSH 1.43 Free T4 0.87 PTH Intact 272.5 H 130.3 H Ur 24 Hour Volume 925 Ur Creatinine mg/dL 70.45 Ur Creatinine 24 Hour 0.7 L Ur Calcium 24 Hr 83 Calcium/Creat 24 Hr 136 EXAMINATION: US THYROID 10/03/24 HISTORY: E04.2 - Nontoxic multinodular goiter TECHNIQUE: Real-time grayscale ultrasound imaging was performed and images were reviewed. COMPARISON: Comparison is made with the prior examination dated 10/14/2022. FINDINGS: SIZE: The right thyroid lobe measures 7.1 x 3.5 x 3.7 cm. The left thyroid lobe is surgically absent. FLOW: Flow to the gland is increased. ECHOGENICITY: The echotexture of the gland is heterogeneous. NODULES: Right-sided nodules are identified as described below: Nodule #: 1 Location: Midportion of the right thyroid lobe measuring 3.7 x 1.8 x 3.3 cm (previously 3.4 x 1.8 x 3.3 cm). Shape: Wider than tall (0 points) Margins: Smooth (0 points) Echotexture: Isoechoic (1 point) Composition: Mostly solid (2 points) Calcifications: None (0 points) Total points: 3 TIRADS: TR3: Mildly suspicious. Nodule #: 2 Location: Mid to lower pole measuring 1.9 x 0.9 x 2.1 cm (previously 2.1 x 1.2 x 1.8 cm). Shape: Wider than tall (0 points) Margins: Smooth (0 points) Echotexture: Hypoechoic (2 points) Composition: Mostly solid (2 points) Calcifications: None (0 points) Total points: 4 TIRADS: TR4: Moderately suspicious. US/US thyroid IMPRESSION: Right thyroid nodules as described above, similar in size to the prior study. US THYROID 10/14/22 CLINICAL INFORMATION: Nontoxic multinodular goiter. History of parathyroidectomy and reimplantation left forearm. COMPARISON: None available. TECHNIQUE: Linear transducer grayscale and color Doppler examination with attention to the region of the thyroid. FINDINGS: SIZE: Measurements of the thyroid lobes and nodules are given in sagittal, anteroposterior and transverse dimensions respectively. Right Thyroid Lobe: 8.4 x 4.0 x 4.4 cm, volume 77.1 mL. Parenchyma: The gland echotexture is heterogeneous. Thyroid vascularity is increased. Left Thyroid Lobe: 6.9 x 4.2 x 4.1 cm, volume 62.4 mL. Parenchyma: The gland echotexture is heterogeneous. Thyroid vascularity is hypervascular. Isthmus: 1.4 cm in maximum AP dimension. Estimated total number of nodules greater than or equal to 1 cm: 4. 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 Location: Right midpole. Size: 3.4 x 1.8 x 3.3 cm, volume 10.6 mL. Nodule characteristics: Composition: Solid/almost completely solid (2). Echogenicity: Hyperechoic (1). Shape: Not taller than wide (0). Margins: Smooth (0). Echogenic Foci: None (0). ACR TI-RADS total points: 3. ACR TI-RADS category: 3. 2. Location: Right lower pole. Size: 2.7 x 1.6 x 2.8 cm, volume 6.3 mL. Nodule characteristics: Composition: Solid/almost completely solid (2). Echogenicity: Hyperechoic (1). Shape: Not taller than wide. Margins: Smooth (0). Echogenic Foci: Microcalcifications. ACR TI-RADS total points: 4. ACR TI-RADS category: 4. 3. Location: Left midpole. Size: 4.2 x 2.0 x 4.6 cm, volume 20.0 mL. Nodule characteristics: Composition: Solid/almost completely solid (2). Echogenicity: Hyperechoic (1). Shape: Not taller than wide (0). Margins: Smooth (0). Echogenic Foci: None. ACR TI-RADS total points: 3. ACR TI-RADS category: 3. 4. Location: Left lower pole. Size: 4.1 x 2.7 x 3.8 cm, volume 22.5 mL. Nodule characteristics: Composition: Solid/almost completely solid (2). Echogenicity: Hyperechoic (1). Shape: Not taller than wide (0). Margins: Smooth (0). Echogenic Foci: None. ACR TI-RADS total points: 3. ACR TI-RADS category: 3. The largest 4 nodules were measured. US/US thyroid IMPRESSION: 4 large thyroid nodules. By ACR BI-RADS recommendation a 6 month follow-up can be performed [facility] Medical History (Updated 09/21/24 @ 09:41 by Carola Swain MD) Osteoporosis Non-toxic multinodular goiter Hypoparathyroidism Surgical History History of biopsy Hx of basal cell carcinoma excision Hx of endoscopy History of surgery Hx of cataract surgery Hx of melanoma excision Hx of hernia repair Hx of parathyroidectomy Hx of cholecystectomy History of surgery Family History Mother No problems noted. Father Pancreatic cancer Social History Alcohol intake: current Patient Tobacco Use Status: Never used Tobacco Physical Exam Vital Signs: Last Vital Signs Pulse 88 11/16/24 08:49 BP 126/76 11/16/24 08:49 Pulse Ox 97 11/16/24 08:49 Oxygen Delivery Method Room Air 11/16/24 08:49 BMI result Body Mass Index 21.1 Assessment & Plan Assessment & Plan (1) Non-toxic multinodular goiter: Code(s): E04.2 - Nontoxic multinodular goiter Category: Medical Plan: 84-year-old female with no family history of thyroid cancer, with no personal history of head or neck radiation, with nontoxic multinodular goiter diagnosed in the , who is status post left lobectomy with Dr. Wanda Greene at [facility] in July 2023 with benign pathology showing follicular nodular disease, who is here today for follow up of right-sided nodules. Also did not require levothyroxine after the surgery. Currently does not have any concerning compressive symptoms or symptoms of hypo or hyperthyroidism. Most recent thyroid ultrasound from September 2024 showed stable size of the right-sided nodules as well as normal TFTs. At this point she has had these nodules for a long period of time that have remained stable in the right dominant nodule was previously benign on biopsy, I will plan to repeat an ultrasound in 2 to 3 years or so. Plan: -next thyroid ultrasound should be done in September 2026 or 2027 (2) Hypoparathyroidism: Code(s): E20.9 - Hypoparathyroidism, unspecified Category: Medical Qualifiers: Hypoparathyroidism type: other hypoparathyroidism Qualified Code(s): E20.89 - Other specified hypoparathyroidism Plan: 84-year-old female with history of primary hyperparathyroidism status post 3-1/2 gland parathyroidectomy at [facility] in 1983 for primary hyperparathyroidism status post completion parathyroidectomy at [facility] in October 2002 with removal of parathyroid dominant and proximately 30 mg fragment autotransplantation in the left forearm by Dr. Wright. Enlarged parathyroid remnant was described to be adherent to the right recurrent laryngeal nerve. Despite autotransplantation of the parathyroid she developed postoperative hypoparathyroidism and has remained on calcitriol 0.5 mcg daily and calcium supplements after. Last visit she was not on any calcium supplements, was taking calcitriol 0.25 mcg every other day and 1000 units of vitamin-D daily. Labs repeated in September 2024 showed elevated PTH levels in the 200s as well as high normal calcium levels. We took her off calcitriol, she is not symptomatic and her blood work repeated in October 2024 again showed normal calcium levels with PTH still elevated. It looks like she might have recurrence of hyperparathyroidism, given she has normal vitamin-D levels, kidney function is good, she had 24 hour urine calcium levels in 2022 which were normal so nothing to suggest secondary hyperparathyroidism. Plus levels would not be this high. Given her extensive neck surgery history, I am not going to consider surgery for her. No recent kidney stones. She does have osteoporosis and we will plan to treat that. Plan: -no more calcitriol -continue 1000 units of vitamin-D daily - (3) Osteoporosis: Code(s): M81.0 - Age-related osteoporosis without current pathological fracture Category: Medical Qualifiers: Osteoporosis type: age-related Presence of current pathological fracture: without current pathological fracture Qualified Code(s): M81.0 - Age-related osteoporosis without current pathological fracture Plan: Patient with a history of primary hyperparathyroidism status post 3-1/2 gland parathyroidectomy at [facility] in 1983 status post completion parathyroidectomy at [facility] in October 2002 with removal parathyroid dominant and proximately 30 mg fragment autotransplantation in the left forearm, who also has a history of osteoporosis. I think she might have recurrent hyperparathyroidism, but given extensive surgery in the past with enlarged parathyroid remnant described to be adherent to the right recurrent laryngeal nerve, I am not going to consider another neck surgery for her. At this time we should treat her osteoporosis. Her last bone density scan was from February 2022 which showed osteoporosis of the hip with T-score of-2.7, osteoporosis of the left forearm with T-score of-3.4. Bone resorption markers with CTX were also elevated at 700. She is up-to-date with dental care. She would be a good candidate for bisphosphonates or Prolia. Normal kidney function. She does have some history of acid reflux, plus given T-score of-3.4 at the forearm, she needs a more potent agent like Reclast or Prolia. She would not be a good candidate for anabolic agents given history of hyperparathyroidism that would put her at risk of hypercalcemia and hypercalciuria. I discussed conservative measures including adequate calcium intake, adequate vitamin D levels as well as the role of weightbearing exercises in general being good for bone health. In addition to conservative management with calcium and vitamin D; I do believe she would benefit from antiresorptive therapy in terms of reducing future fracture risk. Today we discussed the options of Fosamax and Reclast. I also discussed the option of Prolia I counseled regarding the mechanism of action, route of administration, common side effects as well as black box warnings particularly osteonecrosis of the jaw and atypical femur fracture. Prior to initiating therapy I would like her to repeat her bone density scan. Plan: -ordered bone density including the forearm -follow up in 5 weeks to discuss results and start Prolia therapy Plan I spent 50 minutes in reviewing the record, seeing the patient and documenting in the medical record. Orders: Orders XR DEXA appendicular skeleton Today E20.89 - Other specified hypoparathyroidism, M81.0 - Age-related osteoporosis without current pathological fracture Patient Instructions: Continue vitamin D 1000 units daily Continue to maintain good amount of calcium in diet ( yogurt , milk , cheese, spinach, broccoli) Walk 30 mins 5 days a week Get bone density done , we will follow up in 6 weeks to discuss results Read up about Prolia (Denosumab) injections Coding Level of Care Code Est Pt Level 5 (19364) Diagnoses Non-toxic multinodular goiter E04.2 Other hypoparathyroidism E20.89 Hypoparathyroidism type: other hypoparathyroidism Age-related osteoporosis without current pathological fracture M81.0 Osteoporosis type: age-related Presence of current pathological fracture: without current pathological fracture Time Spent (min) 50
--- OUTSIDE RECORDS SUMMARY | 2024-11-16 09:08 | XMS_ITS | Patient Health Record ---
Author Organization [facility] Address [address] [place] [address] Care Team Providers Care Assembly Room Supervisor Name Role Phone Tavon Cochran Unavailable [phone] Scotty PINEDA, Sahshank Unavailable Unavailable Reason For Referral No Information Medications Medication SIG (Take, Route, Frequency, Duration) Notes Start Date End Date Status Vitamin D3 (cholecalciferol (vitamin d3)) 09/06/2012 Active Tylenol (acetaminophen) 09/06/2012 Active pravastatin 09/06/2012 Active Ocuvite (vit c-vit o-zqwpsg-fwg-om-3) 09/06/2012 Active hydroCHLOROthiazide 12.5 MG 1 tablet [...] Problem Status W/U Status Risk Notes Problem Allergic rhinitis (20506217) 477.9-Rhinitis Allergic (477.9) 09/06/2012 Active confirmed Problem Bleeding from nose (finding) (347733979) 784.7-Epistaxi s (784.7) 09/06/2012 Active confirmed Plan Of Treatment No Information Insurance Providers Payer Name Payer Address Payer Phone Subscriber Number Group Number Insured Name Patient Relationship to Insured Coverage Start Date Coverage End Date Medicare Part B [employer] [address] [place] [phone] [id number] Kaitlyn Sotelo Self - patient is the insured [facility] [address] [address] [place] [address] [id number] Kaitlyn Sotelo Self - patient is the insured Medical (General) History Surgical History Surgery Date(Month/Year) Skin Cancer Removed Hernia repair Tonsillectomy gall bladder Parathyroidectomy
--- OUTSIDE RECORDS SUMMARY | 2024-11-16 09:08 | XMS_ITS | Encounter Summary ---
Author Organization [facility] Address [address] [place] [address] Care Team Providers Care Purchasing Manager Name Role Phone Darrick Hamilton MD Primary Care Provider [phone] Reason for Visit * Reason Comments Irritable Bowel Syndrome Encounter Details Date Type Department Care Team (Late st Contact Info) Description 11/15/2024 1:40 PM EDT Office Visit Gastroenterology - [address] [facility] [address] [place] [address] Karrie Gutierrez MD [address] [facility] [address] [facility] [address] [place], [place] [id number] Irritable bowel syndrome with both constipation and diarrhea (Primary Dx) Social History Tobacco Use Types Packs/Day Years Used Date Smoking Tobacco: Never Tobacco Cessation:Counseling Given: Not Answered Alcohol Use Standard Drinks/Week Comments Yes 0 (1 standard drink = 0.6 oz pur e alcohol) Comments Unknown Sex and Gender Information Value Date Recorded Sex Assigned at Not on file Legal Sex Female 7:31 PM EST Gender Identity Not on file Sexual Orientation Not on file documented as of this encounter Last Filed Vital Signs Vital Sign Reading Time Taken Comments Blood Pressure - - Pulse - - Temperature - - Respiratory Rate - - Oxygen Saturation - - Inhaled Oxygen Concentration - - Weight 59.4 kg (131 lb) 11/15/2024 1:24 PM EDT Height 167.6 cm (5' 6 ) 11/15/2024 1:24 PM EDT Body Mass Index 21.14 11/15/2024 1:24 PM EDT documented in this encounter Ordered Prescriptions Prescription Sig Dispense Quantity Refills Last Filled Start Date End Date dicyclomine (BENTYL) 10 mg capsuleIndications :Irritable bowel syndrome with both constipation and diarrhea Take 1 capsule (10 mg total) by mouth 3 (three) times a day if needed (abominal pain). 135 capsule 3 11/15/2024 6 documented in this encounter Progress Notes * Karrie Gutierrez MD - 11/15/2024 1:40 PM EDT CHIEF COMPLAINT: Irritable Bowel Syndrome History of Present Illness Kaitlyn Sotelo is a 84 y.o. old female who was originally referred to us by Samia Chanw presents to the gastroenterology department today for a follow up of a history of irritable bowel syndrome with alternating diarrhea and constipation. Patient was last seen in the office on 11/11/23 and at that time was having more constipation predominant symptoms. We discussed taking miralax daily for better control of her symptoms with continued use of fiber. She returns today for routing yearly follow up. She reports improvement in her condition is reported since the last visit a year ago. Symptoms are managed with dicyclomine, taken as needed, typically in the morning and occasionallyonce more during the day. Approximately 3 weeks ago, severe left-sided abdominal pain occurred after consuming a sweet breakfast of pancakes with maple syrup and coffee, attributed to forgetting the dicyclomine dose that day. Bowel movements have changed from previous regularity, now resembling small, hard pellets. Despite taking probiotics and fiber daily, only softer stool consistency is achieved every 2 to 3 days. A pad is often worn for protection against potential leakage. Fluid intake, including water, has increased, and an active lifestyle is maintained through walking and exercise. ROS: GENERAL: No malaise, significant weight loss or fever HEENT: No changes in hearing or vision, nose bleeds or swallowing problems NECK: No lumps, goiter, pain or significant neck swelling RESPIRATORY: No cough, wheezing or shortness of breath CARDIOVASCULAR: No chest pain, leg swelling or palpitations GI: as per HPI MUSCULOSKELETAL: No joint pain or swelling, back pain, or muscle pain. SKIN: No lesions, rash or itching The remainder of the review of systems is reviewed and negative. PAST MEDICAL HISTORY: Past Medical History: Diagnosis Date Anxiety Glaucoma HTN (hypertension) Hyperlipidemia Irritable bowel syndrome with both constipation and diarrhea Nephrolithiasis PAST SURGICAL HISTORY: Past Surgical History: Procedure Laterality Date APPENDECTOMY 2019 CATARACT EXTRACTION, BILATERAL CHOLECYSTECTOMY COLONOSCOPY 05/26/2021 tics, hemorrhoids COLONOSCOPY 08/05/2015 [place] - nl with tics, hemorrhoids ESOPHAGOGASTRODUODENOSCOPY 08/20/2016 esophageal stricture, surgical changes FLEXIBLE SIGMOIDOSCOPY 2022 tics, hemorrhoids, nl colon bx PARAESOPHAGEAL HERNIA REPAIR PARATHYROIDECTOMY TONSILLECTOMY 1947 US GROIN/INGUINAL HERNIA Right SOCIAL HISTORY: Social History Tobacco Use Smoking status: Never Smokeless tobacco: Not on file Substance Use Topics Alcohol use: Yes FAMILY HISTORY: No family history on file. ACTIVE MEDICATIONS: Current Outpatient Medications Medication Sig Dispense Refill cholecalciferol (Vitamin D3) 10 mcg (400 unit) tablet Take 1 tablet (400 Units total) by mouth. dicyclomine (BENTYL) 10 mg capsule Take 1 capsule (10 mg total) by mouth 3 (three) times a day if needed (abominal pain). 135 capsule 3 dorzolamide-timoloL (COSOPT) 22.3-6.8 mg/mL ophthalmic solution instill one drop into each eye twice a day pravastatin (PRAVACHOL) 20 mg tablet Take 1 tablet (20 mg total) by mouth 1 (one) time each day. spironolactone (ALDACTONE) 50 mg tablet Take 1 tablet (50 mg total) by mouth 1 (one) time each day. verapamiL (CALAN) 120 mg tablet Take 1 tablet (120 mg total) by mouth 2 (two) times a day. Vyzulta 0.024 % drops INSTILL 1 DROP TO BOTH EYES ONCE DAILY No current facility-administered medications for this visit. ALLERGIES: Allergies Allergen Reactions Codeine Latex Penicillin G PHYSICAL EXAM: Visit Vitals Ht 1.676 m (66 ) Wt 59.4 kg (131 lb) BMI 21.14 kg/m?? Smoking Status Never BSA 1.67 m?? APPEARANCE: Alert and in no acute distress EYES: PERRLA, conjunctiva and sclera normal. MOUTH/THROAT: no erythema or exudates NECK: Neck supple, no adenopathy HEART: RRR with normal S1 and S2, no murmurs appreciated LUNG: clear to auscultation LYMPH NODES: grossly normal ABDOMEN: soft non tender, no ascites, guarding, or rebound, no organomegaly. RECTAL: Exam deferred. EXTREMITIES: Extremities warm and well perfused SKIN: Skin color, texture, turgor normal. NEURO: Awake, alert and oriented x 3 Assessment & Plan 1. Irritable Bowel Syndrome: - Continue current regimen of fiber and liquid intake. - Use MiraLAX as needed for severe constipation or incomplete evacuation. - Prescription for dicyclomine provided: take one tablet in the morning and an additional tablet asneeded throughout the day. Follow-up: 10/2025. Assessment & Plan Irritable bowel syndrome with both constipation and diarrhea Orders: dicyclomine (BENTYL) 10 mg capsule; Take 1 capsule (10 mg total) by mouth 3 (three) times a day if needed (abominal pain). Follow up in about 1 year (around 11/15/2025) for Next scheduled follow-up. Board Certified, Gastroenterology [facility] [email or web address] [phone] [place] [id number] [email or web address] Karrie Gutierrez MD documented in this encounter Plan of Treatment Not on file documented as of this encounter Visit Diagnoses Diagnosis Irritable bowel syndrome with both constipation and diarrhea- Primary documented in this encounter Discontinued Medications Medication Sig Discontinue Reason Start Date End Da te dicyclomine (BENTYL) 10 mg capsule Take 1 capsule (10 mg total) by mouth 3 (three) times a day if needed. Reorder 04/07/2024 11/15/2024 documented as of this encounter Historical Medications * This list may reflect changes made after this encounter. Vyzulta 0.024 % drops INSTILL 1 DROP TO BOTH EYES ONCE DAILY dorzolamide-timol oL (COSOPT) 22.3-6.8 mg/mL ophthalmic solution instill one drop into each eye twice a day 11/12/2024 cholecalciferol (Vitamin D3) 10 mcg (400 unit) tablet Take 1 tablet (400 Units total) by mouth. 08/26/2023 spironolactone (ALDACTONE) 50 mg tablet Take 1 tablet (50 mg total) by mouth 1 (one) time each day. pravastatin (PRAVACHOL) 20 mg tablet Take 1 tablet (20 mg total) by mouth 1 (one) time each day. verapamiL (CALAN) 120 mg tablet Take 1 tablet (120 mg total) by mouth 2 (two) times a day. 10/22/2024 dicyclomine (BENTYL) 10 mg capsule Take 1 capsule (10 mg total) by mouth 3 (three) times a day if needed. 04/07/2024 11/15/2024 added in this encounter Care Teams Purchasing Manager Relationship Specialty Start Date End Date Darrick Hamilton MD [address] PCP - General Internal Medicine 11/15/24 documented as of this encounter
--- OUTSIDE RECORDS SUMMARY | 2024-11-16 09:08 | XMS_ITS | Clinical Summary ---
Author Organization [facility] [address] [facility] Address [address] [place] [address] Phone Care Team Providers Care Chain Link Fence Installer Name Role Phone Darrick Hamilton MD Primary Care Provider [phone] Allergies Active Allergy Reactions Criticality Noted Date Comments Codeine 11/15/2024 Latex 11/15/2024 Penicillin G 11/15/2024 Medications verapamiL (CALAN) 120 mg tablet Take 1 tablet (120 mg total) by mouth 2 (two) times a day. 5 Active pravastatin (PRAVACHOL) 20 mg tablet Take 1 tablet (20 mg total) by mouth 1 (one) time each day. Active spironolactone (ALDACTONE) 50 mg tablet Take 1 tablet (50 mg total) by mouth 1 (one) time each day. Active cholecalciferol (Vitamin D3) 10 mcg (400 unit) tablet Take 1 tablet (400 Units total) by mouth. 4 Active dorzolamide-timol oL (COSOPT) 22.3-6.8 mg/mL ophthalmic solution instill one drop into each eye twice a day 5 Active Vyzulta 0.024 % drops INSTILL 1 DROP TO BOTH EYES ONCE DAILY Active dicyclomine (BENTYL) 10 mg capsuleIndication s:Irritable bowel syndrome with both constipation and diarrhea Take 1 capsule (10 mg total) by mouth 3 (three) times a day if needed (abominal pain). 135 capsule 3 5 11/16/19 26 Active dicyclomine (BENTYL) 10 mg capsule Take 1 capsule (10 mg total) by mouth 3 (three) times a day if needed. 4 11/16/19 25 Discontinu ed(Reorder ) Encounters Date Type Department Care Team Description 11/15/2024 1:40 PM EDT Office Visit Gastroenterology - [address] [place] [address] Karrie Gutierrez MD Irritable bowel syndrome with both constipation and diarrhea (Primary Dx) from Last 3 Months Surgical History Surgery Date Site/Laterality Comments FLEXIBLE SIGMOIDOSCOPY 2022 tics, hemorrhoids, nl colon bx CHOLECYSTECTOMY CATARACT EXTRACTION, BILATERAL PARAESOPHAGEAL HERNIA REPAIR PARATHYROIDECTOMY COLONOSCOPY 05/26/2021 tics, hemorrhoids COLONOSCOPY 08/05/2015 [place] - nl with tics, hemorrhoids ESOPHAGOGASTRODUODENOSCOPY 08/20/2016 esophageal stricture, surgical changes US GROIN/INGUINAL HERNIA Right APPENDECTOMY 07/19/2018 - 07/18/2019 TONSILLECTOMY 07/19/1947 - 07/18/1948 Medical History Medical History Date Comments Irritable bowel syndrome with both constipation and diarrhea HTN (hypertension) Hyperlipidemia Glaucoma Anxiety Nephrolithiasis Social History Tobacco Use Types Packs/Day Years [...] on file Sexual Orientation Not on file Obstetrics History Last Filed Vital Signs Vital Sign Reading Time Taken Comments Blood Pressure - - Pulse - - Temperature - - Respiratory Rate - - Oxygen Saturation - - Inhaled Oxygen Concentration - - Weight 59.4 kg (131 lb) 11/15/2024 1:24 PM EDT Height 167.6 cm (5' 6 ) 11/15/2024 1:24 PM EDT Body Mass Index 21.14 11/15/2024 1:24 PM EDT Plan of Treatment Health Maintenance Due Date Last Done Comments Zoster Vaccines (2 of 3) 08/16/2014 06/21/2014 RSV Immunization Adult Patients (1 - 1-dose 75+ series) 2016 Cholesterol Screening (Lipid Panel) 06/20/2022 Depression Screening 06/20/2022 Falls Risk Assessment 06/20/2022 Medicare Annual Wellness Visit 06/20/2022 Osteoporosis Screening (Bone Density Screening) 06/20/2022 Social Influencers of Health Screening 06/20/2022 DTaP,Tdap,and Td Vaccines (3 - Td or Tdap) 11/08/2023 11/07/2013, 04/02/2000 COVID-19 Vaccine ( season) 2024 04/05/2024, 05/13/2023, 04/25/2022, Additional history exists Hypertension/CHF/CAD Annual BMP Blood Test 11/15/2024 Pneumococcal Vaccine: 50+ Years Completed 05/04/2017, 11/07/2013 Influenza Vaccine Completed 04/05/2024, , 05/15/2022, Additional history exists HIB Vaccines Aged Out No longer eligi [...] age to complete this topic Meningococcal B Vaccine Aged Out No l onger eligible based on patient's age to complete this topic RSV Immunization Patients Under 20 months Aged Out No longer eligible based on patient's age to complete this topic Varicella Vaccines Aged Out No longer eligible based on patient's age to complete this topic Insurance MEDICARE Care Teams Chain Link Fence Installer Relationship Specialty Start Date End Date Darrick Hamilton MD [address] [facility] [address] [place], [place] PCP - General Internal Medicine 11/15/24
== END 2024-11-16 09:37 | disposition home or self-care (01) ==
LOC: HO.ENCR 08:47
PROVIDERS: PCP Internal Medicine; Visit Provider Student in an Organized Health Care Education/Training Program
DX: E04.2 Nontoxic multinodular goiter (principal); E20.89 Other specified hypoparathyroidism; M81.0 Age-related osteoporosis without current pathological fracture
CPT/HCPCS: 99215

== ENCOUNTER → 2024-11-16 08:47 | Outpatient (BNVA) | payer MEDICARE, OTHER, SELFPAY | PROVIDERS: PCP Internal Medicine; Visit Provider Student in an Organized Health Care Education/Training Program | DX: M81.0 Age-related osteoporosis without current pathological fracture (principal); E04.2 Nontoxic multinodular goiter; E20.89 Other specified hypoparathyroidism | CPT/HCPCS: 99212 ==

== ENCOUNTER 2024-12-28 08:59 | Outpatient (REF) | payer MEDICARE, OTHER, SELFPAY ==
--- NOTE | ~2024-12-28 | MM_ITS ---
EXAMINATION: DXA BONE DENSITY EXTREMITY HISTORY: M81.0 - Age-related osteoporosis without current pathological fracture TECHNIQUE: [place] Dual energy absorptiometry (DEXA) of the lumbar spine, total left hip, femoral neck, and distal radius was performed. COMPARISON: There are no prior studies for comparison. FINDINGS: The bone mineral density of the lumbar spine is 0.892, corresponding to a T-score of -2.3, and a Z-score of -0.2. This is indicative of osteopenia. The bone mineral density of the left total hip is 0.595, corresponding to a T-score of -3.3, and a Z-score of -0.9. This is indicative of osteoporosis. The bone mineral density of the left femoral neck is 0.714, corresponding to a T-score of -2.3, and a Z-score of 0.1. This is indicative of osteopenia. The bone mineral density of the distal radius is 0.500, corresponding to a T-score of -4.3, and a Z-score of -1.2. This is indicative of osteoporosis. MM/XR DEXA appendicular skeleton IMPRESSION: Based on bone mineral density, and according to World Health Organization (WHO) criteria, the diagnosis is consistent with osteoporosis. All bone density values are in grams per centimeter squared (g/cm2). Statistically, 68% of repeat scans fall within 1 SD (+/- 0.010 g/cm2 for AP spine L1-L4) and 1 SD (+/- 0.012 g/cm2 for femur total) FRAX is a trademark of the [employer]'s [place] [facility] [employer], a World Health Organization (WHO) Collaborating Center. Electronically signed by: Allen Dumont MD 12/28/2024 09:46 AM EDT
--- OUTSIDE RECORDS SUMMARY | 2024-12-28 09:34 | XMS_ITS | Patient Health Record ---
Author Organization [facility] Address [address] [place] [address] Care Team Providers Care Silk Washing Machine Operator Name Role Phone Tavon Cochran Unavailable [phone] Scotty PINEDA, Shashank Unavailable Unavailable Reason For Referral No Information Medications Medication SIG (Take, Route, Frequency, Duration) Notes Start Date End Date Status Vitamin D3 (cholecalciferol (vitamin d3)) 09/06/2012 Active Tylenol (acetaminophen) 09/06/2012 Active pravastatin 09/06/2012 Active Ocuvite (vit c-vit [id number]) 09/06/2012 Active hydroCHLOROthiazide 12.5 MG 1 tablet [...] Problem Status W/U Status Risk Notes Problem Bleeding from nose (finding) (711998875) 784.7-Epistaxi s (784.7) 09/06/2012 Active confirmed Problem Allergic rhinitis (94465973) 477.9-Rhinitis Allergic (477.9) 09/06/2012 Active confirmed Plan Of Treatment No Information Insurance Providers Payer Name Payer Address Payer Phone Subscriber Number Group Number Insured Name Patient Relationship to Insured Coverage Start Date Coverage End Date Medicare Part B [employer] [address] [place], [place] [phone] [id number] Kaitlyn Sotelo Self - patient is the insured [facility] [address] [address] [place] [address] [id number] Kaitlyn Sotelo Self - patient is the insured Medical (General) History Surgical History Surgery Date(Month/Year) Skin Cancer Removed Hernia repair Tonsillectomy gall bladder Parathyroidectomy
== END 2024-12-28 09:00 | disposition home or self-care (01) ==
LOC: HO.MAMMO 08:59
PROVIDERS: PCP Internal Medicine; Visit Provider Student in an Organized Health Care Education/Training Program
DX: M81.0 Age-related osteoporosis without current pathological fracture (principal); E20.89 Other specified hypoparathyroidism
CPT/HCPCS: 77081

== ENCOUNTER → 2024-12-28 09:30 | Outpatient (BNV) | payer MEDICARE, OTHER, SELFPAY | PROVIDERS: PCP Internal Medicine; Visit Provider Radiology Diagnostic Radiology | DX: E28.39 Other primary ovarian failure (principal) | CPT/HCPCS: 77081 ==

== ENCOUNTER 2025-01-02 08:05 | Outpatient (AMB) | payer MEDICARE, OTHER, SELFPAY ==
[2025-01-02 08:07] VITALS: BP 112/64; PULSE 83; O2SAT 97; BMI 21.6
--- NOTE | 2025-01-02 08:07 | A.OFFVIS_ITS ---
Vital Signs 3 01/02/25 08:07 Height 5 ft 6 in Weight 133 lb 13.129 oz BMI 21.6 BP 112/64 Blood Pressure Location Lt brachial Position Sitting Pulse 83 Pulse Source Pulse Oximeter Pulse Oximetry (%) 97 Oxygen Delivery Method Room Air Intake Visit Reasons: MNG/hypoparathyroidism Intake Note: Patient present today for MNG and hypoparathyroidism office visit. 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 Wanda Greene at [facility] with benign pathology, who is being followed for right-sided thyroid nodules. Also has history of primary hyperparathyroidism status post 3-1/[address] [facility] in 1983, status post completion parathyroidectomy at [facility] in October 2002 with removal of parathyroid remnant an approximately 30 mg fragment autotransplantation into the left forearm by Dr. Roblero. Now followed for hyperparathyroidism as well. Multinodular goiter Diagnosed with thyroid nodules in Had biopsy of nodules in the past, no old records of biopsy available. Apparently had biopsy in 1997 of a left-sided nodule which was benign Apparently sometime in the past a biopsy of this left-sided nodule also yielded microfollicular cytology (? Flus or follicular neoplasm? ). However when she was undergoing completion parathyroidectomy in 2002, the surgeon was reluctant to perform plan thyroidectomy for multinodular goiter as the parathyroid remnant was adherent to the right recurrent laryngeal nerve. Between 2013 and 2018 she travels between [place] and [place] and follow up with the internal carver in [place]. In 2019, a follow up ultrasound of her goiter/nodule showed increase in size of some of her nodules. 08/31/2018: FNA of the dominant 3.2 cm right midpole and 5.2 cm left midpole nodules was done, cytology of the right lobe was benign, cytology of the left lobe was AUS, Afirma came back suspicious for malignancy category. No aggressive/fusion mutations. 08/29/2021: Neck ultrasound at [facility] described multiple bilateral thyroid nodules including 2.6 cm right inferior pole and 2.1 cm right midpole TR 4 nodules, and a 3.9 cm left superior pole and 3.6 cm left inferior pole TR 3 nodules. 10/14/2022: Thyroid ultrasound at [facility] described 3.4 cm TR 3 right midpole nodule, 2.8 cm TR 4 right inferior pole nodule, 4.6 cm TR 3 left midpole nodule and a 4.1 cm TR 3 left inferior pole nodule. She was subsequently referred to Dr. Wanda Greene at [facility] for evaluation for thyroidectomy. No compressive symptoms apparently at that time. It was decided at that time to proceed with left lobectomy as there was a concern of severe paratracheal scarring in the setting of prior surgeries. No personal history of head or neck radiation, no family history of thyroid cancers or endocrine tumors. 08/10/2023 status post left lobectomy with Dr. Wanda Greene at [facility]: Pathology showed follicular nodular disease with nodules Interval history 2014 esophagus nicked during surgery , on and off trouble swallowing not concerning to her No other compressive symptoms no heat or cold intolerance No excessive fatigue Ultrasound images reviewed from September 2024 which shows stable size of the right- sided nodules and normal TFTs from September 2024 History of Hypoparathyroidism status post resection Osteoporosis Status post 3-1/[address] [facility] in 1983 for primary hyperparathyroidism status post completion parathyroidectomy at [facility] in October 2002 with removal of parathyroid dominant and proximately 30 mg fragment autotransplantation in the left forearm by Dr. Wright. Enlarged parathyroid remnant was described to be adherent to the right recurrent laryngeal nerve. Despite autotransplantation of the parathyroid she developed postoperative hypoparathyroidism and has remained on calcitriol 0.5 mcg daily and calcium supplements. Interval history 09/21/24 Was taking calcitriol 0.25 mcg every other day up until 10/04/2024 and we stopped this as blood work from September 2024 showed PTH elevated Currently not on any calcium supplements On calcitriol o.25 mcg every other day and 1000 units of vitamin D daily In the morning some paresthesias in her hands more so on the right No recent calcium level in our system Milk not regulary Yogurt one serving activia daily Cheese here and there no fractures Interval history 11/16/2024 Blood work from 09/21/2024 showed PTH elevated at 272.5 with normal calcium levels on the higher side at 9.5 with albumin of 4. 10/04/2024: Asked her to stop calcitriol 0.25 mcg every other day and blood work repeated on 10/19/2024 still showed normal calcium levels of 9 with ionized calcium of 4.9, phosphorus of 3.7, albumin of 3.8, PTH intact at 130.3. Vitamin-D of 51.6. Normal kidney function. It looks like she has a recurrence of hyperparathyroidism, but given her age and history of multiple neck surgeries, were not going to consider surgery. At this point we should manage her osteoporosis, bone density records obtained from Dr. Main's office showed last bone density was February 2022 which showed osteopenia of the spine with T-score of --1.6, osteopenia of the left femoral neck with T-score of-2.1, osteoporosis of the left total hip with T-score of- 2.7, osteoporosis of the left forearm with T-score of-3.4. Interval history 01/02/2025 Bone density done 12/28/2024 showed T-score of-2.3 at the lumbar spine consistent with osteopenia however she does have a lot of DJD in her spine, likely falsely elevating the bone density, lowest T-score is -2.6 at L2, T-score is -3.3 at the left total femur, consistent with osteoporosis, T-score is -2.3 at the left femoral neck consistent with osteopenia. T-score-4.3 at the left forearm consistent with osteoporosis. Physical exam General: sitting comfortably in no acute distress HEENT: normocephalic/atraumatic, moist oral mucosa Neck: supple, Cardiac: normal heart sounds Pulm: normal breath sounds B/L, no added breath sounds Abd: not distended, no tenderness Extremities: no edema, no signs of myxedema Neuro: AAO x3, Speech: normal, no facial droop, moving all 4 extremities Laboratory Tests 09/28/22 10/12/23 08:00 15:00 Calcium 9.0 Phosphorus 4.0 Albumin 3.7 TSH 1.41 Free T4 0.77 Ur 24 Hour Volume 925 Ur Creatinine mg/dL 70.45 Ur Creatinine 24 Hour 0.7 L Ur Calcium 24 Hr 83 Calcium/Creat 24 Hr 136 Laboratory Tests 10/12/23 09/21/24 15:00 09:33 TSH 1.41 1.43 Free T4 0.77 0.87 Laboratory Tests 09/28/22 09/21/24 10/19/24 08:00 09:33 10:00 Creatinine 1.13 0.88 Estimated GFR 46 > 60 Calcium 9.5 9.0 Ionized Calcium 4.9 Phosphorus 4.0 3.7 Alk Phos Bone Specific 16.9 Albumin 3.9 3.8 Collgn I C-Telopeptide 709 25-OH Vitamin D Total 51.3 51.6 TSH 1.43 Free T4 0.87 PTH Intact 272.5 H 130.3 H Ur 24 Hour Volume 925 Ur Creatinine mg/dL 70.45 Ur Creatinine 24 Hour 0.7 L Ur Calcium 24 Hr 83 Calcium/Creat 24 Hr 136 EXAMINATION: US THYROID 10/03/24 HISTORY: E04.2 - Nontoxic multinodular goiter TECHNIQUE: Real-time grayscale ultrasound imaging was performed and images were reviewed. COMPARISON: Comparison is made with the prior examination dated 10/14/2022. FINDINGS: SIZE: The right thyroid lobe measures 7.1 x 3.5 x 3.7 cm. The left thyroid lobe is surgically absent. FLOW: Flow to the gland is increased. ECHOGENICITY: The echotexture of the gland is heterogeneous. NODULES: Right-sided nodules are identified as described below: Nodule #: 1 Location: Midportion of the right thyroid lobe measuring 3.7 x 1.8 x 3.3 cm (previously 3.4 x 1.8 x 3.3 cm). Shape: Wider than tall (0 points) Margins: Smooth (0 points) Echotexture: Isoechoic (1 point) Composition: Mostly solid (2 points) Calcifications: None (0 points) Total points: 3 TIRADS: TR3: Mildly suspicious. Nodule #: 2 Location: Mid to lower pole measuring 1.9 x 0.9 x 2.1 cm (previously 2.1 x 1.2 x 1.8 cm). Shape: Wider than tall (0 points) Margins: Smooth (0 points) Echotexture: Hypoechoic (2 points) Composition: Mostly solid (2 points) Calcifications: None (0 points) Total points: 4 TIRADS: TR4: Moderately suspicious. US/US thyroid IMPRESSION: Right thyroid nodules as described above, similar in size to the prior study. US THYROID 10/14/22 CLINICAL INFORMATION: Nontoxic multinodular goiter. History of parathyroidectomy and reimplantation left forearm. COMPARISON: None available. TECHNIQUE: Linear transducer grayscale and color Doppler examination with attention to the region of the thyroid. FINDINGS: SIZE: Measurements of the thyroid lobes and nodules are given in sagittal, anteroposterior and transverse dimensions respectively. Right Thyroid Lobe: 8.4 x 4.0 x 4.4 cm, volume 77.1 mL. Parenchyma: The gland echotexture is heterogeneous. Thyroid vascularity is increased. Left Thyroid Lobe: 6.9 x 4.2 x 4.1 cm, volume 62.4 mL. Parenchyma: The gland echotexture is heterogeneous. Thyroid vascularity is hypervascular. Isthmus: 1.4 cm in maximum AP dimension. Estimated total number of nodules greater than or equal to 1 cm: 4. 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 Location: Right midpole. Size: 3.4 x 1.8 x 3.3 cm, volume 10.6 mL. Nodule characteristics: Composition: Solid/almost completely solid (2). Echogenicity: Hyperechoic (1). Shape: Not taller than wide (0). Margins: Smooth (0). Echogenic Foci: None (0). ACR TI-RADS total points: 3. ACR TI-RADS category: 3. 2. Location: Right lower pole. Size: 2.7 x 1.6 x 2.8 cm, volume 6.3 mL. Nodule characteristics: Composition: Solid/almost completely solid (2). Echogenicity: Hyperechoic (1). Shape: Not taller than wide. Margins: Smooth (0). Echogenic Foci: Microcalcifications. ACR TI-RADS total points: 4. ACR TI-RADS category: 4. 3. Location: Left midpole. Size: 4.2 x 2.0 x 4.6 cm, volume 20.0 mL. Nodule characteristics: Composition: Solid/almost completely solid (2). Echogenicity: Hyperechoic (1). Shape: Not taller than wide (0). Margins: Smooth (0). Echogenic Foci: None. ACR TI-RADS total points: 3. ACR TI-RADS category: 3. 4. Location: Left lower pole. Size: 4.1 x 2.7 x 3.8 cm, volume 22.5 mL. Nodule characteristics: Composition: Solid/almost completely solid (2). Echogenicity: Hyperechoic (1). Shape: Not taller than wide (0). Margins: Smooth (0). Echogenic Foci: None. ACR TI-RADS total points: 3. ACR TI-RADS category: 3. The largest 4 nodules were measured. US/US thyroid IMPRESSION: 4 large thyroid nodules. By ACR BI-RADS recommendation a 6 month follow-up can be performed [facility] Medical History (Updated 09/21/24 @ 09:41 by Carola Swain MD) Osteoporosis Non-toxic multinodular goiter Hypoparathyroidism Surgical History History of biopsy Hx of basal cell carcinoma excision Hx of endoscopy History of surgery Hx of cataract surgery Hx of melanoma excision Hx of hernia repair Hx of parathyroidectomy Hx of cholecystectomy History of surgery Family History Mother No problems noted. Father Pancreatic cancer Social History Alcohol intake: current Patient Tobacco Use Status: Never used Tobacco Assessment & Plan Assessment & Plan (1) Non-toxic multinodular goiter: Code(s): E04.2 - Nontoxic multinodular goiter Category: Medical Plan: 84-year-old female with no family history of thyroid cancer, with no personal history of head or neck radiation, with nontoxic multinodular goiter diagnosed in the , who is status post left lobectomy with Dr. Wanda Greene at [facility] in July 2023 with benign pathology showing follicular nodular disease, who is here today for follow up of right-sided nodules. Also did not require levothyroxine after the surgery. Currently does not have any concerning compressive symptoms or symptoms of hypo or hyperthyroidism. Most recent thyroid ultrasound from September 2024 showed stable size of the right-sided nodules as well as normal TFTs. At this point she has had these nodules for a long period of time that have remained stable in the right dominant nodule was previously benign on biopsy, I will plan to repeat an ultrasound in 2 to 3 years or so. Plan: -next thyroid ultrasound should be done in September 2026 or 2027 (2) Hypoparathyroidism: Code(s): E20.9 - Hypoparathyroidism, unspecified Category: Medical Qualifiers: Hypoparathyroidism type: other hypoparathyroidism Qualified Code(s): E 20.89 - Other specified hypoparathyroidism Plan: 84-year-old female with history of primary hyperparathyroidism status post 3- 1/[address] [facility] in 1983 for primary hyperparathyroidism status post completion parathyroidectomy at [facility] in October 2002 with removal of parathyroid dominant and proximately 30 mg fragment autotransplantation in the left forearm by Dr. Wright. Enlarged parathyroid remnant was described to be adherent to the right recurrent laryngeal nerve. Despite autotransplantation of the parathyroid she developed postoperative hypoparathyroidism and has remained on calcitriol 0.5 mcg daily and calcium supplements after. Last visit she was not on any calcium supplements, was taking calcitriol 0.25 mcg every other day and 1000 units of vitamin-D daily. Labs repeated in September 2024 showed elevated PTH levels in the 200s as well as high normal calcium levels. We took her off calcitriol, she is not symptomatic and her blood work repeated in October 2024 again showed normal calcium levels with PTH still elevated. It looks like she might have recurrence of hyperparathyroidism, given she has normal vitamin-D levels, kidney function is good, she had 24 hour urine calcium levels in 2022 which were normal so nothing to suggest secondary hyperparathyroidism. Plus levels would not be this high. Given her extensive neck surgery history, I am not going to consider surgery for her. No recent kidney stones. She does have osteoporosis and we will plan to treat that. Plan: -no more calcitriol -continue 1000 units of vitamin-D daily - (3) Osteoporosis: Code(s): M81.0 - Age-related osteoporosis without current pathological fracture Category: Medical Qualifiers: Osteoporosis type: age-related Presence of current pathological fracture: without current pathological fracture Qualified Code(s): M81.0 - Age- related osteoporosis without current pathological fracture Plan: Patient with a history of primary hyperparathyroidism status post 3-/[address] [facility] in 1983 status post completion parathyroidectomy at [facility] in October 2002 with removal parathyroid dominant and proximately 30 mg fragment autotransplantation in the left forearm, who also has a history of osteoporosis. I think she might have recurrent hyperparathyroidism, but given extensive surgery in the past with enlarged parathyroid remnant described to be adherent to the right recurrent laryngeal nerve, I am not going to consider another neck surgery for her. At this time we should treat her osteoporosis. Bone density done 12/28/2024 showed T-score of-2.3 at the lumbar spine consistent with osteopenia however she does have a lot of DJD in her spine, likely falsely elevating the bone density, lowest T-score is -2.6 at L2, T-score is -3.3 at the left total femur, consistent with osteoporosis, T-score is -2.3 at the left femoral neck consistent with osteopenia. T-score-4.3 at the left forearm consistent with osteoporosis.Bone resorption markers with CTX were also elevated at 700. She is up-to-date with dental care. She would be a good candidate for bisphosphonates or Prolia. Normal kidney function. She does have some history of acid reflux, plus given T-score of-4.3 at the forearm, she needs a more potent agent like Reclast or Prolia. She would not be a good candidate for anabolic agents given history of hyperparathyroidism that would put her at risk of hypercalcemia and hypercalciuria. I discussed conservative measures including adequate calcium intake, adequate vitamin D levels as well as the role of weightbearing exercises in general being good for bone health. In addition to conservative management with calcium and vitamin D; I do believe she would benefit from antiresorptive therapy in terms of reducing future fracture risk. Today we discussed the options of Fosamax and Reclast. I also discussed the option of Prolia I counseled regarding the mechanism of action, route of administration, common side effects as well as black box warnings particularly osteonecrosis of the jaw and atypical femur fracture. At this time we have agreed on Prolia. Plan: -Start Prolia (Denosumab) injection every 6 months Please remember once you start its important to get this injection every 6 months You will need blood work within 3 weeks of the injection each time Continue vitamin D 1000 units daily Do blood work today Continue incorporating milk, yogurt, cheese in your diet Walk 30 mins 5 days a week Plan I spent 30 minutes in reviewing the record, seeing the patient and documenting in the medical record. Orders: Orders 2 Albumin Level Today E20.89 - Other specified hypoparathyroidism, M81.0 - Age- related osteoporosis without current pathological fracture Calcium, Ionized Today E20.89 - Other specified hypoparathyroidism, M81.0 - Age-related osteoporosis without current pathological fracture Phosphorus Today E20.89 - Other specified hypoparathyroidism, M81.0 - Age- related osteoporosis without current pathological fracture Vitamin D 25-OH Total Today E20.89 - Other specified hypoparathyroidism, M81.0 - Age-related osteoporosis without current pathological fracture Basic Metabolic Panel Today E20.89 - Other specified hypoparathyroidism, M81.0 - Age-related osteoporosis without current pathological fracture Parathyroid Hormone Intact Today E20.89 - Other specified hypoparathyroidism, M81.0 - Age-related osteoporosis without current pathological fracture Calcium Today E20.89 - Other specified hypoparathyroidism, M81.0 - Age-related osteoporosis without current pathological fracture Medications: New 2 denosumab (Prolia) 60 mg subcut [id number] 1 mL 6RF Patient Instructions: Start Prolia (Denosumab) injection every 6 months Please remember once you start its important to get this injection every 6 months You will need blood work within 3 weeks of the injection each time Continue vitamin D 1000 units daily Do blood work today Continue incorporating milk, yogurt, cheese in your diet Walk 30 mins 5 days a week Prolia Common side effects of Prolia include muscle and joint aches and pains, low calcium level which may happen if calcium and vitamin D intake is inadequate. So please need to take calcium and vitamin D regularly. Other side effects may include skin rash, skin or bladder infection. Very rare side effects include osteonecrosis of the jaw and femur fractures. Should you experience any side effects with Prolia, please let us know. Coding Level of Care Code Est Pt Level 4 (59455) Diagnoses Non-toxic multinodular goiter E04.2 Other hypoparathyroidism E20.89 Hypoparathyroidism type: other hypoparathyroidism Age-related osteoporosis without current pathological fracture M81.0 Osteoporosis type: age-related Presence of current pathological fracture: without current pathological fracture Time Spent (min) 30
--- OUTSIDE RECORDS SUMMARY | 2025-01-02 08:09 | XMS_ITS | Patient Health Record ---
Author Organization [facility] Address [address] [place] [address] Care Team Providers Care Law Examiner Name Role Phone Tavon Cochran Unavailable [phone] Scotty PINEDA, Shashank Unavailable Unavailable Reason For Referral No Information Medications Medication SIG (Take, Route, Frequency, Duration) Notes Start Date End Date Status Vitamin D3 (cholecalciferol (vitamin d3)) 09/06/2012 Active Tylenol (acetaminophen) 09/06/2012 Active pravastatin 09/06/2012 Active Ocuvite (vit c-vit [id number]-3) 09/06/2012 Active hydroCHLOROthiazide 12.5 MG 1 tablet [...] Risk Notes Problem Bleeding from nose (finding) (652052462) 784.7-Epistaxi s (784.7) 09/06/2012 Active confirmed Problem Allergic rhinitis (72108936) 477.9-Rhinitis Allergic (477.9) 09/06/2012 Active confirmed Plan Of Treatment No Information Insurance Providers Payer Name Payer Address Payer Phone Subscriber Number Group Number Insured Name Patient Relationship to Insured Coverage Start Date Coverage End Date Medicare Part B [employer] [address] [place], [place] [phone] [id number] Kaitlyn Sotelo Self - patient is the insured [facility] [address] [address] [place] [address] [id number] Kaitlyn Sotelo Self - patient is the insured Medical (General) History Surgical History Surgery Date(Month/Year) Skin Cancer Removed Hernia repair Tonsillectomy gall bladder Parathyroidectomy
== END 2025-01-02 08:43 | disposition home or self-care (01) ==
LOC: HO.ENCR 08:06
PROVIDERS: PCP Internal Medicine; Visit Provider Student in an Organized Health Care Education/Training Program
DX: E04.2 Nontoxic multinodular goiter (principal); E20.89 Other specified hypoparathyroidism; M81.0 Age-related osteoporosis without current pathological fracture
CPT/HCPCS: 99214

== ENCOUNTER → 2025-01-02 08:05 | Outpatient (BNVA) | payer MEDICARE, OTHER, SELFPAY | PROVIDERS: PCP Internal Medicine; Visit Provider Student in an Organized Health Care Education/Training Program | DX: Z13.89 Encounter for screening for other disorder (principal) ==

== ENCOUNTER 2025-01-02 08:46 | Outpatient (REF) | payer MEDICARE, OTHER, SELFPAY ==
[2025-01-02 10:13] LABS: Albumin Level 4.1 g/dL (3.5-5.0); Anion Gap 9 (12-20); Blood Urea Nitrogen 26 mg/dL (9-16); Calcium 8.9 mg/dL (8.4-10.2); Carbon Dioxide 28 mmol/L (22-29); Chloride 108 mmol/L (96-108); Estimated Glomerular Filt Rate 56; Glucose Random 109 mg/dL (60-115); Potassium 4.3 mmol/L (3.3-5.1); Sodium 141 mmol/L (135-145)
[2025-01-02 10:29] LABS: Vitamin D 25-OH Total 53.1 ng/mL (>30)
[2025-01-02 10:36] LABS: Parathyroid Hormone Intact 124.4 pg/mL (8.7-77.1)
[2025-01-02 11:24] LABS: Phosphorus 4.1 mg/dL (2.7-4.5)
== END 2025-01-02 08:47 | disposition home or self-care (01) ==
LOC: HO.10HDL 08:46
PROVIDERS: Visit Provider Student in an Organized Health Care Education/Training Program
DX: M81.0 Age-related osteoporosis without current pathological fracture (principal); E20.89 Other specified hypoparathyroidism; E04.2 Nontoxic multinodular goiter
CPT/HCPCS: 36415; 80048; 82040; 82306; 82330; 83970; 84100; 99212

== ENCOUNTER 2025-01-09 08:31 | Outpatient (AMB) | payer MEDICARE, OTHER, SELFPAY ==
--- OUTSIDE RECORDS SUMMARY | 2025-01-09 08:46 | XMS_ITS | Patient Health Record ---
Author Organization [facility] Address [address] [place] [address] Care Team Providers Care Millinery Department Manager Name Role Phone Tavon Cochran Unavailable [phone] Scotty PINEDA, Shashank Unavailable Unavailable Reason For Referral No Information Medications Medication SIG (Take, Route, Frequency, Duration) Notes Start Date End Date Status Vitamin D3 (cholecalciferol (vitamin d3)) 09/06/2012 Active Tylenol (acetaminophen) 09/06/2012 Active pravastatin 09/06/2012 Active Ocuvite (vit c-vit [id number]-om-3) 09/06/2012 Active hydroCHLOROthiazide 12.5 MG 1 tablet [...] Risk Notes Problem Bleeding from nose (finding) ([id number]) 784.7-Epistaxi s (784.7) 09/06/2012 Active confirmed Problem Allergic rhinitis (99804203) 477.9-Rhinitis Allergic (477.9) 09/06/2012 Active confirmed Plan Of Treatment No Information Insurance Providers Payer Name Payer Address Payer Phone Subscriber Number Group Number Insured Name Patient Relationship to Insured Coverage Start Date Coverage End Date Medicare Part B [employer] [address] [place], [place] [phone] [id number] Kaitlyn Sotelo Self - patient is the insured [facility] [address] [address] [place] [address] [id number] Kaitlyn Sotelo Self - patient is the insured Medical (General) History Surgical History Surgery Date(Month/Year) Skin Cancer Removed Hernia repair Tonsillectomy gall bladder Parathyroidectomy
--- NOTE | 2025-01-09 09:08 | AM.OFFVISNUR ---
Intake Visit Reasons: Prolia #1 Allergies codeine Allergy (Unknown, Verified 11/16/24 08:52) stomach pain latex Allergy (Unknown, Verified 11/16/24 08:52) Rash Penicillins Allergy (Unknown, Verified 11/16/24 08:52) Diarrhea Office Meds Prolia 60 mg/mL subcutaneous syringe Performing Provider: Carola Swain MD Performing Location: [facility] Endocrinology Administered by: Luzmaria Daigle RN on 01/09/25 09:09 Dose Route Admin Location Dispensed Lot Number Expiration Date [place] Cancer Registry Manager 60 mg subcut right upper arm 1 mL [id number] 01/15/27 93373-296-14 [employer] Total Dispensed Waste 1 mL 0 % Comments: Patient here for first prolia injection. Tolerated injection well. Observed for 15 minutes following injection without any adverse reactions. Assessment & Plan Assessment & Plan Orders: Orders AMB Denosumab Injection Patient Supplied Today M81.0 - Age-related osteoporosis without current pathological fracture Coding
== END 2025-01-09 09:08 | disposition home or self-care (01) ==
LOC: HO.ENCR 08:32
PROVIDERS: PCP Internal Medicine; Visit Provider Student in an Organized Health Care Education/Training Program
DX: M81.0 Age-related osteoporosis without current pathological fracture (principal)

== ENCOUNTER → 2025-01-09 08:31 | Outpatient (BNVA) | payer MEDICARE, OTHER, SELFPAY | PROVIDERS: PCP Internal Medicine; Visit Provider Student in an Organized Health Care Education/Training Program | DX: M81.0 Age-related osteoporosis without current pathological fracture (principal) | CPT/HCPCS: 96372; J0897 ==

== ENCOUNTER 2025-04-23 07:55 | Outpatient (AMB) | payer MEDICARE, OTHER, SELFPAY ==
--- OUTSIDE RECORDS SUMMARY | 2025-04-23 07:59 | XMS_ITS | Encounter Summary ---
Author Organization [facility] Address [address] [place] [address] Care Team Providers Care Warper Creeler Name Role Phone Darrick Hamilton MD Primary Care Provider [phone] Encounter Details Date Type Department Care Team (Latest Contact Info) Description 03/06/2025 Lab Requisition [facility] - Main Lab [address] [facility] [place] [address] Raymond Soto MD [address] [address] Encounter for gynecological examination (general) (routine) without abnormal findings Social History Tobacco Use Types Packs/Day Years Used Date Smoking Tobacco: Never Alcohol Use Standard Drinks/Week Comments Yes 0 (1 standard drink = 0.6 oz pur e alcohol) Comments Unknown Sex and Gender Information Value Date Recorded Sex Assigned at Not on file Legal Sex Female 7:31 PM EST Gender Identity Not on file Sexual Orientation Not on file documented as of this encounter Plan of Treatment Not on file documented as of this encounter Procedures Procedure Name Priority Date/Time Associated Diagnosis Comments PAP SMEAR Routine 03/05/2025 12:00 PM EDT Encounter for gynecological examination (general) (routine) without abnormal findings documented in this encounter Results * Pap smear (03/05/2025 12:00 PM EDT) Interpretation Negative for intraepithelial lesion or malignancy 03/08/2025 8:30 AM EDT [facility] General Categorization Negative 03/08/2025 8:30 AM EDT [facility] Other Findings Atrophy 03/08/2025 8:30 AM EDT [facility] Specimen Adequacy Satisfactory for evaluation 03/08/2025 8:30 AM EDT [facility] Pap Methodology Liquid Based Pap Test 03/08/2025 8:30 AM EDT [facility] Disclaimer The Pap test is a screening test which carries an inherent false negative rate. These test results should be correlated with the patient's clinical findings and history. This Pap test was processed using an automated screening system. Technical cytopathology services provided by [facility], at [address] [place] [address] (CLIA # [id number]/Inez Crawford MD, Retail Aide.) 03/08/2025 8:30 AM EDT [facility] Console Pap Interpretation Reported 03/08/2025 8:30 AM T [facility] Brushing/Spatula Cervix uteri structure / Unknown 03/05/2025 12:00 PM EDT 03/06/2025 6:27 AM EDT us Raymond Soto MD LAB CYTOLOGY ORDERABLES Final Result [facility] [address] [place] [address], documented in this encounter Visit Diagnoses Diagnosis Encounter for gynecological examination (general) (routine) without abnormal findings documented in this encounter Care Teams Warper Creeler Relationship Specialty Start Date End Date Darrick Hamilton MD [address] [place] [address] PCP - General Internal Medicine 11/15/24 documented as of this encounter
--- OUTSIDE RECORDS SUMMARY | 2025-04-23 07:59 | XMS_ITS | Clinical Summary ---
Author Organization [facility] 299 [facility] Address [address] [place] [address] Phone Care Team Providers Care Rn Field Case Manager Name Role Phone Darrick Hamilton MD Primary Care Provider [phone] Allergies Active Allergy Reactions Criticality Noted Date [...] 135 capsule 3 5 11/16/19 26 Active Encounters Date Type Department Care Team Description 03/06/2025 Lab Requisition [facility] - Main Lab [address] [facility] [place] [address] Raymond Soto MD Encounter for gynecological examination (general) (routine) without abnormal findings from Last 3 Months Surgical History Surgery [...] series) 2016 Cholesterol Screening (Lipid Panel) 06/20/2022 Falls Risk Assessment 06/20/2022 Medicare Annual Wellness Visit 06/20/2022 Osteoporosis Screening (Bone Density Screening) 06/20/2022 Social Influencers of Health Screening 06/20/2022 DTaP,Tdap,and Td Vaccines (3 - Td or Tdap) 11/08/2023 11/07/2013, 04/02/2000 Depression Screening 07/19/2024 Hypertension/CHF/CAD Annual BMP Blood Test 11/15/2024 COVID-19 Vaccine ( season) 2025 04/05/2024, 05/13/2023, 04/25/2022, Additional history exists Influenza Vaccine (#1) 2025 , 05/07/2023, 05/15/2022, Additional history exists Pneumococcal Vaccine: 50+ Years Completed 05/04/2017, 11/07/2013 HIB Vaccines Aged Out No longer eligi [...] on patient's age to complete this topic Procedures Procedure Name Priority Date/Time Associated Diagnosis Comments PAP SMEAR Routine 03/05/2025 12:00 PM EDT Encounter for gynecological examination (general) (routine) without abnormal findings from Last 3 Months Results * Pap smear (03/05/2025 12:00 PM EDT) Interpretation Negative for intraepithelial lesion or malignancy 03/08/2025 8:30 AM EDT [facility] General Categorization Negative 03/08/2025 8:30 AM EDT [facility] Other Findings Atrophy 03/08/2025 8:30 AM T [facility] Specimen Adequacy Satisfactory for evaluation 03/08/2025 8:30 AM EDT [facility] Pap Methodology Liquid Based Pap Test 03/08/2025 8:30 AM EDT [facility] Disclaimer The Pap test is a screening test which carries an inherent false negative rate. These test results should be correlated with the patient's clinical findings and history. This Pap test was processed using an automated screening system. Technical cytopathology services provided by [facility], at [address] [place] [address] (CLIA # [id number]/Inez Crawford MD, Engineering Programmer.) 03/08/2025 8:30 AM EDT [facility] Console Pap Interpretation Reported 03/08/2025 8:30 AM EDT [facility] Brushing/Spatula Cervix uteri structure / Unknown 03/05/2025 12:00 PM EDT 03/06/2025 6:27 AM EDT us Raymond Soto MD LAB CYTOLOGY ORDERABLES Final Result [facility] [address] [place] [address], from Last 3 Months Insurance MEDICARE [facility] Care Teams Rn Field Case Manager Relationship Specialty Start Date End Date Darrick Hamilton MD [address] [place] [address] PCP - General Internal Medicine 11/15/24
--- OUTSIDE RECORDS SUMMARY | 2025-04-23 07:59 | XMS_ITS | Patient Health Record ---
Author Organization [facility] Address [address] [place] [address] Care Team Providers Care Environmental Projects Advisor Name Role Phone Tavon Cochran Unavailable [phone] Scotty PINEDA, Shashank Unavailable Unavailable Reason For Referral No Information Medications Medication SIG (Take, Route, Frequency, Duration) Notes Start Date End Date Status Vitamin D3 (cholecalciferol (vitamin d3)) 09/06/2012 Active Tylenol (acetaminophen) 09/06/2012 Active pravastatin 09/06/2012 Active Ocuvite (vit c-vit [id number]-3) 09/06/2012 Active hydroCHLOROthiazide 12.5 MG 1 tablet [...] W/U Status Risk Notes Problem Allergic rhinitis (29145856) 477.9-Rhinitis Allergic (477.9) 09/06/2012 Active confirmed Problem Bleeding from nose (finding) (625188334) 784.7-Epistaxi s (784.7) 09/06/2012 Active confirmed Plan Of Treatment No Information Insurance Providers Payer Name Payer Address Payer Phone Subscriber Number Group Number Insured Name Patient Relationship to Insured Coverage Start Date Coverage End Date Medicare Part B [employer] [address] [place] [phone] [id number] Kaitlyn Sotelo Self - patient is the insured [facility] [address] [address] [place] [address] [id number] Kaitlyn Sotelo Self - patient is the insured Medical (General) History Surgical History Surgery Date(Month/Year) Skin Cancer Removed Hernia repair Tonsillectomy gall bladder Parathyroidectomy
--- NOTE | 2025-04-23 08:01 | MHC.OFFVIS ---
Vital Signs 04/23/25 08:02 Height 5 ft 6 in Weight 128 lb 15.527 oz BMI 20.8 BP 128/72 Blood Pressure Location Lt brachial Position Sitting Pulse 84 Pulse Source Pulse Oximeter Pulse Oximetry (%) 99 Oxygen Delivery Method Room Air Intake Visit Reasons: MNG/hypoparathyroidism Intake Note: Patient present today for MNG and hypoparathyroidism office visit. 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 Accompanied by: Self / Same As Patient Allergies codeine Allergy (Unknown, Verified 04/23/25 08:05) stomach pain latex Allergy (Unknown, Verified 04/23/25 08:05) Rash Penicillins Allergy (Unknown, Verified 04/23/25 08:05) Diarrhea Medication List - Last Reconciled 04/23/25 by Carola Swain MD cholecalciferol (vitamin D3) 25 mcg PO DAILY denosumab (Prolia) 60 mg subcut [id number] dorzolamide-timolol 22.3-6.8 mg/mL ophthalmic (eye) ONCE PRN pravastatin 20 mg PO DAILY spironolactone 25 mg PO DAILY verapamil 120 mg PO BID HPI Comments Details: 84-year-old female with past medical history significant for 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 Wanda Greene at [facility] with benign pathology, who is being followed for right-sided thyroid nodules. Also has history of primary hyperparathyroidism status post 3-1/2 gland parathyroidectomy at [facility] in 1983, status post completion parathyroidectomy at [facility] in October 2002 with removal of parathyroid remnant an approximately 30 mg fragment autotransplantation into the left forearm by Dr. Roblero. Now followed for hyperparathyroidism as well. Multinodular goiter Diagnosed with thyroid nodules in Had biopsy of nodules in the past, no old records of biopsy available. Apparently had biopsy in 1997 of a left-sided nodule which was benign Apparently sometime in the past a biopsy of this left-sided nodule also yielded microfollicular cytology (? Flus or follicular neoplasm? ). However when she was undergoing completion parathyroidectomy in 2002, the surgeon was reluctant to perform plan thyroidectomy for multinodular goiter as the parathyroid remnant was adherent to the right recurrent laryngeal nerve. 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 In 2019, a follow up ultrasound of her goiter/nodule showed increase in size of some of her nodules. 08/31/2018: FNA of the dominant 3.2 cm right midpole and 5.2 cm left midpole nodules was done, cytology of the right lobe was benign, cytology of the left lobe was AUS, Afirma came back suspicious for malignancy category. No aggressive/fusion mutations. 08/29/2021: [place] [facility] [place] multiple bilateral thyroid nodules including 2.6 cm right inferior pole and 2.1 cm right midpole TR 4 nodules, and a 3.9 cm left superior pole and 3.6 cm left inferior pole TR 3 nodules. 10/14/2022: Thyroid ultrasound at [facility] described 3.4 cm TR 3 right midpole nodule, 2.8 cm TR 4 right inferior pole nodule, 4.6 cm TR 3 left midpole nodule and a 4.1 cm TR 3 left inferior pole nodule. She was subsequently referred to Dr. Wanda Greene at [facility] for evaluation for thyroidectomy. No compressive symptoms apparently at that time. It was decided at that time to proceed with left lobectomy as there was a concern of severe paratracheal scarring in the setting of prior surgeries. No personal history of head or neck radiation, no family history of thyroid cancers or endocrine tumors. 08/10/2023 status post left lobectomy with Dr. Wanda Greene at [facility]: Pathology showed follicular nodular disease with nodules Interval history 2015 esophagus nicked during surgery , on and off trouble swallowing not concerning to her No other compressive symptoms no heat or cold intolerance No excessive fatigue Ultrasound images reviewed from September 2024 which shows stable size of the right-sided nodules and normal TFTs from September 2024 History of Hypoparathyroidism status post resection Osteoporosis Status post 3-1/2 gland parathyroidectomy at [facility] in 1983 for primary hyperparathyroidism status post completion parathyroidectomy at [facility] in October 2002 with removal of parathyroid dominant and proximately 30 mg fragment autotransplantation in the left forearm by Dr. Wright. Enlarged parathyroid remnant was described to be adherent to the right recurrent laryngeal nerve. Despite autotransplantation of the parathyroid she developed postoperative hypoparathyroidism and has remained on calcitriol 0.5 mcg daily and calcium supplements. Was taking calcitriol 0.25 mcg every other day up until 10/04/2024 and we stopped this as blood work from September 2024 showed PTH elevated Currently not on any calcium supplements On calcitriol o.25 mcg every other day and 1000 units of vitamin D daily In the morning some paresthesias in her hands more so on the right No recent calcium level in our system Milk not regulary Yogurt one serving activia daily Cheese here and there no fractures Blood work from 09/21/2024 showed PTH elevated at 272.5 with normal calcium levels on the higher side at 9.5 with albumin of 4. 10/04/2024: Asked her to stop calcitriol 0.25 mcg every other day and blood work repeated on 10/19/2024 still showed normal calcium levels of 9 with ionized calcium of 4.9, phosphorus of 3.7, albumin of 3.8, PTH intact at 130.3. Vitamin-D of 51.6. Normal kidney function. It looks like she has a recurrence of hyperparathyroidism, but given her age and history of multiple neck surgeries, were not going to consider surgery. At this point we should manage her osteoporosis, bone density records obtained from Dr. Main's office showed last bone density was February 2022 which showed osteopenia of the spine with T-score of --1.6, osteopenia of the left femoral neck with T-score of-2.1, osteoporosis of the left total hip with T-score of-2.7, osteoporosis of the left forearm with T-score of-3.4. Bone density done 12/28/2024 showed T-score of-2.3 at the lumbar spine consistent with osteopenia however she does have a lot of DJD in her spine, likely falsely elevating the bone density, lowest T-score is -2.6 at L2, T-score is -3.3 at the left total femur, consistent with osteoporosis, T-score is -2.3 at the left femoral neck consistent with osteopenia. T-score-4.3 at the left forearm consistent with osteoporosis. Interval history 04/23/2025 Started on Prolia 01/10/2025 No falls or fractures On vitamin D 1000 units daily Calcium intake: no supplements, milk: lactaid milk here and there, some ice cream and cheese Dental: uptodate, 2 real teeth , no issues Physical exam General: sitting comfortably in no acute distress HEENT: normocephalic/atraumatic, moist oral mucosa Neck: supple, Cardiac: normal heart sounds Pulm: normal breath sounds B/L, no added breath sounds Abd: not distended, no tenderness Extremities: no edema, no signs of myxedema Neuro: AAO x3, Speech: normal, no facial droop, moving all 4 extremities Laboratory Tests 09/28/22 10/12/23 08:00 15:00 Calcium 9.0 Phosphorus 4.0 Albumin 3.7 TSH 1.41 Free T4 0.77 Ur 24 Hour Volume 925 Ur Creatinine mg/dL 70.45 Ur Creatinine 24 Hour 0.7 L Ur Calcium 24 Hr 83 Calcium/Creat 24 Hr 136 Laboratory Tests 10/12/23 09/21/24 15:00 09:33 TSH 1.41 1.43 Free T4 0.77 0.87 Laboratory Tests 09/28/22 09/21/24 10/19/24 08:00 09:33 10:00 Creatinine 1.13 0.88 Estimated GFR 46 > 60 Calcium 9.5 9.0 Ionized Calcium 4.9 Phosphorus 4.0 3.7 Alk Phos Bone Specific 16.9 Albumin 3.9 3.8 Collgn I C-Telopeptide 709 25-OH Vitamin D Total 51.3 51.6 TSH 1.43 Free T4 0.87 PTH Intact 272.5 H 130.3 H Ur 24 Hour Volume 925 Ur Creatinine mg/dL 70.45 Ur Creatinine 24 Hour 0.7 L Ur Calcium 24 Hr 83 Calcium/Creat 24 Hr 136 EXAMINATION: US THYROID 10/03/24 HISTORY: E04.2 - Nontoxic multinodular goiter TECHNIQUE: Real-time grayscale ultrasound imaging was performed and images were reviewed. COMPARISON: Comparison is made with the prior examination dated 10/14/2022. FINDINGS: SIZE: The right thyroid lobe measures 7.1 x 3.5 x 3.7 cm. The left thyroid lobe is surgically absent. FLOW: Flow to the gland is increased. ECHOGENICITY: The echotexture of the gland is heterogeneous. NODULES: Right-sided nodules are identified as described below: Nodule #: 1 Location: Midportion of the right thyroid lobe measuring 3.7 x 1.8 x 3.3 cm (previously 3.4 x 1.8 x 3.3 cm). Shape: Wider than tall (0 points) Margins: Smooth (0 points) Echotexture: Isoechoic (1 point) Composition: Mostly solid (2 points) Calcifications: None (0 points) Total points: 3 TIRADS: TR3: Mildly suspicious. Nodule #: 2 Location: Mid to lower pole measuring 1.9 x 0.9 x 2.1 cm (previously 2.1 x 1.2 x 1.8 cm). Shape: Wider than tall (0 points) Margins: Smooth (0 points) Echotexture: Hypoechoic (2 points) Composition: Mostly solid (2 points) Calcifications: None (0 points) Total points: 4 TIRADS: TR4: Moderately suspicious. US/US thyroid IMPRESSION: Right thyroid nodules as described above, similar in size to the prior study. US THYROID 10/14/22 CLINICAL INFORMATION: Nontoxic multinodular goiter. History of parathyroidectomy and reimplantation left forearm. COMPARISON: None available. TECHNIQUE: Linear transducer grayscale and color Doppler examination with attention to the region of the thyroid. FINDINGS: SIZE: Measurements of the thyroid lobes and nodules are given in sagittal, anteroposterior and transverse dimensions respectively. Right Thyroid Lobe: 8.4 x 4.0 x 4.4 cm, volume 77.1 mL. Parenchyma: The gland echotexture is heterogeneous. Thyroid vascularity is increased. Left Thyroid Lobe: 6.9 x 4.2 x 4.1 cm, volume 62.4 mL. Parenchyma: The gland echotexture is heterogeneous. Thyroid vascularity is hypervascular. Isthmus: 1.4 cm in maximum AP dimension. Estimated total number of nodules greater than or equal to 1 cm: 4. Operations Chief nodules are described as follows: 1. Location: Right midpole. Size: 3.4 x 1.8 x 3.3 cm, volume 10.6 mL. Nodule characteristics: Composition: Solid/almost completely solid (2). Echogenicity: Hyperechoic (1). Shape: Not taller than wide (0). Margins: Smooth (0). Echogenic Foci: None (0). ACR TI-RADS total points: 3. ACR TI-RADS category: 3. 2. Location: Right lower pole. Size: 2.7 x 1.6 x 2.8 cm, volume 6.3 mL. Nodule characteristics: Composition: Solid/almost completely solid (2). Echogenicity: Hyperechoic (1). Shape: Not taller than wide. Margins: Smooth (0). Echogenic Foci: Microcalcifications. ACR TI-RADS total points: 4. ACR TI-RADS category: 4. 3. Location: Left midpole. Size: 4.2 x 2.0 x 4.6 cm, volume 20.0 mL. Nodule characteristics: Composition: Solid/almost completely solid (2). Echogenicity: Hyperechoic (1). Shape: Not taller than wide (0). Margins: Smooth (0). Echogenic Foci: None. ACR TI-RADS total points: 3. ACR TI-RADS category: 3. 4. Location: Left lower pole. Size: 4.1 x 2.7 x 3.8 cm, volume 22.5 mL. Nodule characteristics: Composition: Solid/almost completely solid (2). Echogenicity: Hyperechoic (1). Shape: Not taller than wide (0). Margins: Smooth (0). Echogenic Foci: None. ACR TI-RADS total points: 3. ACR TI-RADS category: 3. The largest 4 nodules were measured. US/US thyroid IMPRESSION: 4 large thyroid nodules. By ACR BI-RADS recommendation a 6 month follow-up can be performed [facility] Medical History (Updated 09/21/24 @ 09:41 by Carola Swain MD) Osteoporosis Non-toxic multinodular goiter Hypoparathyroidism Surgical History History of biopsy Hx of basal cell carcinoma excision Hx of endoscopy History of surgery Hx of cataract surgery Hx of melanoma excision Hx of hernia repair Hx of parathyroidectomy Hx of cholecystectomy History of surgery Family History Mother No problems noted. Father Pancreatic cancer Social History Alcohol intake: current Patient Tobacco Use Status: Never used Tobacco Assessment & Plan Assessment & Plan (1) Non-toxic multinodular goiter: Code(s): E04.2 - Nontoxic multinodular goiter Category: Medical Plan: 84-year-old female with no family history of thyroid cancer, with no personal history of head or neck radiation, with nontoxic multinodular goiter diagnosed in the , who is status post left lobectomy with Dr. Wanda Greene at [facility] in July 2023 with benign pathology showing follicular nodular disease, who is here today for follow up of right-sided nodules. Also did not require levothyroxine after the surgery. Currently does not have any concerning compressive symptoms or symptoms of hypo or hyperthyroidism. Most recent thyroid ultrasound from September 2024 showed stable size of the right-sided nodules as well as normal TFTs. At this point she has had these nodules for a long period of time that have remained stable in the right dominant nodule was previously benign on biopsy, I will plan to repeat an ultrasound in 2 to 3 years or so. Plan: -next thyroid ultrasound should be done in September 2026 or 2027 (2) Hypoparathyroidism: Code(s): E20.9 - Hypoparathyroidism, unspecified Category: Medical Qualifiers: Hypoparathyroidism type: other hypoparathyroidism Qualified Code(s): E20.89 - Other specified hypoparathyroidism Plan: 84-year-old female with history of primary hyperparathyroidism status post 3-1/2 gland parathyroidectomy at [facility] in 1983 for primary hyperparathyroidism status post completion parathyroidectomy at [facility] in October 2002 with removal of parathyroid dominant and proximately 30 mg fragment autotransplantation in the left forearm by Dr. Wright. Enlarged parathyroid remnant was described to be adherent to the right recurrent laryngeal nerve. Despite autotransplantation of the parathyroid she developed postoperative hypoparathyroidism and has remained on calcitriol 0.5 mcg daily and calcium supplements after. Last visit she was not on any calcium supplements, was taking calcitriol 0.25 mcg every other day and 1000 units of vitamin-D daily. Labs repeated in September 2024 showed elevated PTH levels in the 200s as well as high normal calcium levels. We took her off calcitriol, she is not symptomatic and her blood work repeated in October 2024 again showed normal calcium levels with PTH still elevated. It looks like she might have recurrence of hyperparathyroidism, given she has normal vitamin-D levels, kidney function is good, she had 24 hour urine calcium levels in 2022 which were normal so nothing to suggest secondary hyperparathyroidism. Plus levels would not be this high. Given her extensive neck surgery history, I am not going to consider surgery for her. No recent kidney stones. She does have osteoporosis and we started treatment with Prolia in December 2024. Plan: -no more calcitriol -continue 1000 units of vitamin-D daily (3) Osteoporosis: Code(s): M81.0 - Age-related osteoporosis without current pathological fracture Category: Medical Qualifiers: Osteoporosis type: age-related Presence of current pathological fracture: without current pathological fracture Qualified Code(s): M81.0 - Age-related osteoporosis without current pathological fracture Plan: Patient with a history of primary hyperparathyroidism status post 3-07/20 gland parathyroidectomy at [facility] in 1983 status post completion parathyroidectomy at [facility] in October 2002 with removal parathyroid dominant and proximately 30 mg fragment autotransplantation in the left forearm, who also has a history of osteoporosis. I think she might have recurrent hyperparathyroidism, but given extensive surgery in the past with enlarged parathyroid remnant described to be adherent to the right recurrent laryngeal nerve, I am not going to consider another neck surgery for her. At this time we should treat her osteoporosis. Bone density done 12/28/2024 showed T-score of-2.3 at the lumbar spine consistent with osteopenia however she does have a lot of DJD in her spine, likely falsely elevating the bone density, lowest T-score is -2.6 at L2, T-score is -3.3 at the left total femur, consistent with osteoporosis, T-score is -2.3 at the left femoral neck consistent with osteopenia. T-score-4.3 at the left forearm consistent with osteoporosis.Bone resorption markers with CTX were also elevated at 700. She is up-to-date with dental care. She would be a good candidate for bisphosphonates or Prolia. Normal kidney function. She does have some history of acid reflux, plus given T-score of-4.3 at the forearm, she needs a more potent agent like Reclast or Prolia. She would not be a good candidate for anabolic agents given history of hyperparathyroidism that would put her at risk of hypercalcemia and hypercalciuria. Started Prolia injection 01/10/2025. Tolerated it well. Plan: -continue Prolia (Denosumab) injection every 6 months will need blood work within 3 weeks of the injection each time -Continue vitamin D 1000 units daily -Continue incorporating milk, yogurt, cheese in your diet -Walk 30 mins 5 days a week -follow up in December 2025 which would be 1 year since she started the Prolia injection with bone resorption markers and blood work Next bone density would be due December 2026 Plan See above Orders: Orders Albumin Level 06/18/25 M81.0 - Age-related osteoporosis without current pathological fracture Alkaline Phosphatase Bone 12/03/25 E04.2 - Nontoxic multinodular goiter, M81.0 - Age-related osteoporosis without current pathological fracture Collagen Type I C-Telopeptide 12/03/25 E04.2 - Nontoxic multinodular goiter, M81.0 - Age-related osteoporosis without current pathological fracture Creatinine 12/03/25 E04.2 - Nontoxic multinodular goiter, M81.0 - Age-related osteoporosis without current pathological fracture Vitamin D 25-OH Total 12/03/25 E04.2 - Nontoxic multinodular goiter, M81.0 - Age-related osteoporosis without current pathological fracture Phosphorus 12/03/25 E04.2 - Nontoxic multinodular goiter, M81.0 - Age-related osteoporosis without current pathological fracture TSH reflex Free T4 12/03/25 E04.2 - Nontoxic multinodular goiter, M81.0 - Age-related osteoporosis without current pathological fracture Calcium 06/18/25 M81.0 - Age-related osteoporosis without current pathological fracture Vitamin D 25-OH Total 06/18/25 M81.0 - Age-related osteoporosis without current pathological fracture Creatinine 06/18/25 M81.0 - Age-related osteoporosis without current pathological fracture Albumin Level 12/03/25 E04.2 - Nontoxic multinodular goiter, M81.0 - Age-related osteoporosis without current pathological fracture Calcium 12/03/25 E04.2 - Nontoxic multinodular goiter, M81.0 - Age-related osteoporosis without current pathological fracture Calcium, Ionized 12/03/25 E04.2 - Nontoxic multinodular goiter, M81.0 - Age-related osteoporosis without current pathological fracture Patient Instructions: continue Prolia injection every 6 months Continue vitamin-D 1000 units daily Continue to incorporate calcium intake in your diet no supplements Do blood work 2 weeks before your Prolia injection, please make sure you let the lab staff no to look at the dates on the blood work to avoid confusion and mixing up this year's lab and next year's lab Follow up with me in December 2025, please do blood work (fasting 8AM ) 2 weeks before that appointment as well orders have been placed. Coding Level of Care Code Est Pt Level 3 (34699) Diagnoses Non-toxic multinodular goiter E04.2 Other hypoparathyroidism E20.89 Hypoparathyroidism type: other hypoparathyroidism Age-related osteoporosis without current pathological fracture M81.0 Osteoporosis type: age-related Presence of current pathological fracture: without current pathological fracture
[2025-04-23 08:02] VITALS: BP 128/72; PULSE 84; O2SAT 99; BMI 20.8
== END 2025-04-23 08:20 | disposition home or self-care (01) ==
LOC: HO.ENCR 07:55
PROVIDERS: PCP Internal Medicine; Visit Provider Student in an Organized Health Care Education/Training Program
DX: E04.2 Nontoxic multinodular goiter (principal); E20.89 Other specified hypoparathyroidism; M81.0 Age-related osteoporosis without current pathological fracture
CPT/HCPCS: 99213

== ENCOUNTER → 2025-04-23 07:55 | Outpatient (BNVA) | payer MEDICARE, OTHER, SELFPAY | PROVIDERS: PCP Internal Medicine; Visit Provider Student in an Organized Health Care Education/Training Program | DX: E04.2 Nontoxic multinodular goiter (principal); E20.89 Other specified hypoparathyroidism; M81.0 Age-related osteoporosis without current pathological fracture | CPT/HCPCS: 99212 ==

== ENCOUNTER 2025-06-21 09:22 | Outpatient (REF) | payer MEDICARE, OTHER, SELFPAY ==
--- OUTSIDE RECORDS SUMMARY | 2025-06-21 10:38 | XMS_ITS | Clinical Summary ---
Author Organization [facility] [address] [facility] Address [address] [place] [address] Phone Care Team Providers Care Credit Administration Officer Name Role Phone Darrick Hamilton MD Primary Care Provider [phone] Allergies Active Allergy Reactions Criticality Noted Date [...] 135 capsule 3 5 11/16/19 26 Active Surgical History Surgery Date Site/Laterality Comments FLEXIBLE [...] age to complete this topic Insurance MEDICARE [facility] Care Teams Credit Administration Officer Relationship Specialty Start Date End Date Darrick Hamilton MD [address] [place] [address] PCP - General Internal Medicine 11/15/24
--- OUTSIDE RECORDS SUMMARY | 2025-06-21 10:38 | XMS_ITS | Patient Health Record ---
Author Organization [facility] Address [address] [place] [address] Care Team Providers Care Dish Maker Name Role Phone Tavon Cochran Unavailable [phone] Scotty PINEDA, Shashank Unavailable Unavailable Reason For Referral No Information Medications Medication SIG (Take, Route, Frequency, Duration) Notes Start Date End Date Status Vitamin D3 (cholecalciferol (vitamin d3)) 09/06/2012 Active Tylenol (acetaminophen) 09/06/2012 Active pravastatin 09/06/2012 Active Ocuvite (vit c-vit [id number]) 09/06/2012 Active hydroCHLOROthiazide 12.5 MG 1 tablet [...] Risk Notes Problem Bleeding from nose (finding) ([id number]) 784.7-Epistaxi s (784.7) 09/06/2012 Active confirmed Problem Allergic rhinitis ([id number]) 477.9-Rhinitis Allergic (477.9) 09/06/2012 Active confirmed Plan Of Treatment No Information Insurance Providers Payer Name Payer Address Payer Phone Subscriber Number Group Number Insured Name Patient Relationship to Insured Coverage Start Date Coverage End Date Medicare Part B [employer] [address] [place], [place] [phone] [id number] Kaitlyn Sotelo Self - patient is the insured [facility] [address] [address] [place] [address] [id number] Kaitlyn Sotelo Self - patient is the insured Medical (General) History Surgical History Surgery Date(Month/Year) Skin Cancer Removed Hernia repair Tonsillectomy gall bladder Parathyroidectomy
--- OUTSIDE RECORDS SUMMARY | 2025-06-21 10:38 | XMS_ITS | Encounter Summary ---
Author Organization [facility] Address [address] [place] [address] Care Team Providers Care Burial Vault Deliverer And Installer Name Role Phone Darrick Hamilton MD Primary Care Provider [phone] Encounter Details Date Type Department Care Team (Latest Contact Info) Description 03/06/2025 Lab Requisition [facility] - Main Lab [address] [facility] [place] [address] Raymond Soto MD [address] [address] Encounter for gynecological examination (general) [...] lesion or malignancy 03/08/2025 8:30 AM EDT [facility] at 0830 EDT General Categorization Negative 03/08/2025 8:30 AM EDT [facility]PITAL LAB Other Findings Atrophy 03/08/2025 8:30 AM EDT [facility] Specimen Adequacy Satisfactory for evaluation 03/08/2025 8:30 AM EDT [facility] Pap Methodology Liquid Based Pap Test 03/08/2025 8:30 AM EDT [facility] Disclaimer The Pap test is a screening test which carries an inherent false negative rate. These test results should be correlated with the patient's clinical findings and history. This Pap test was processed using an automated screening system. Technical cytopathology services provided by [facility], at [address] [place] [address] (CLIA # [id number]/Inez Crawford MD, Trimmer Climber.) 03/08/2025 8:30 AM EDT [facility] Console Pap Interpretation Reported 03/08/2025 8:30 AM T [facility] Brushing/Spatula Cervix uteri structure / Unknown 03/05/2025 12:00 PM EDT 03/06/2025 6:27 AM EDT us Raymond Soto MD LAB CYTOLOGY ORDERABLES Final Result [facility]) [facility] [address] [place] [address], documented in this encounter Visit Diagnoses Diagnosis Encounter for gynecological examination (general) (routine) without abnormal findings documented in this encounter Care Teams Burial Vault Deliverer And Installer Relationship Specialty Start Date End Date Darrick Hamilton MD [address] [place] [address] PCP - General Internal Medicine 11/15/24 documented as of this encounter
[2025-06-21 10:55] LABS: Albumin Level 4.0 g/dL (3.5-5.0); Calcium 8.4 mg/dL (8.4-10.2); Estimated Glomerular Filt Rate 56
== END 2025-06-21 09:23 | disposition home or self-care (01) ==
LOC: HO.10HDL 09:22
PROVIDERS: Visit Provider Student in an Organized Health Care Education/Training Program
DX: M81.0 Age-related osteoporosis without current pathological fracture (principal)
CPT/HCPCS: 36415; 82040; 82306; 82310; 82565

== ENCOUNTER 2025-07-04 08:41 | Outpatient (AMB) | payer MEDICARE, OTHER, SELFPAY ==
--- NOTE | 2025-07-04 08:57 | AM.OFFVISNUR ---
Intake Visit Reasons: Prolia Allergies codeine Allergy (Unknown, Verified 04/23/25 08:05) stomach pain latex Allergy (Unknown, Verified 04/23/25 08:05) Rash Penicillins Allergy (Unknown, Verified 04/23/25 08:05) Diarrhea Office Meds Prolia 60 mg/mL subcutaneous syringe Performing Provider: Carola Swain MD Performing Location: [facility] Endocrinology Administered by: Lesly High RN on 07/04/25 08:48 Dose Route Admin Location Dispensed Lot Number Expiration Date [facility] Sanitation Engineer 60 mg subcut left upper arm 1 mL [id number] 10/17/27 86313-612-87 [employer] Total Dispensed Waste 1 mL 0 % Comments: No adverse reactions reported from previous injection. Pt tolerated injection well. Pt scheduled in 6 months for next f/u appt and injection. Pt had no further questions at this time. Assessment & Plan Assessment & Plan Orders: Orders AMB Denosumab Injection Practice Supplied Today M81.0 - Age-related osteoporosis without current pathological fracture Coding
--- OUTSIDE RECORDS SUMMARY | 2025-07-04 09:06 | XMS_ITS | Clinical Summary ---
Author Organization [facility] 299 [facility] Address [address] [place] [address] Phone Care Team Providers Care Import Coordinator Name Role Phone Darrick Hamilton MD Primary Care Provider [phone] Allergies Active Allergy Reactions Criticality Noted Date [...] on file Sexual Orientation Not on file Last Filed Vital Signs Vital Sign Reading [...] BMP Blood Test 11/15/2024 COVID-19 Vaccine ( - season) 2025 04/05/2024, 05/13/2023, 04/25/2022, Additional history [...] to complete this topic Insurance MEDICARE [facility] Care Teams Import Coordinator Relationship Specialty Start Date End Date Darrick Hamilton MD [facility] [place] [address] PCP - General Internal Medicine 11/15/24
--- OUTSIDE RECORDS SUMMARY | 2025-07-04 09:06 | XMS_ITS | Encounter Summary ---
Author Organization [facility] Address [address] [place] [address] Care Team Providers Care Pattern Grader Supervisor Name Role Phone Darrick Hamilton MD Primary Care Provider [phone] Encounter Details Date Type Department Care Team (Latest Contact Info) Description 03/06/2025 Lab Requisition [facility] - Main Lab [address] [facility] [place] [address] Raymond Soto MD [address] [address] Encounter for gynecological examination (general) [...] lesion or malignancy 03/08/2025 8:[address] [facility] at 0830 EDT General Categorization Negative 03/08/2025 8:30 AM EDT [facility] HOSPITAL LAB Other Findings Atrophy 03/08/2025 8:[address] [facility] Specimen Adequacy Satisfactory for evaluation 03/08/2025 8:[address] [facility] Pap Methodology Liquid Based Pap Test 03/08/2025 8:[address] [facility] Disclaimer The Pap test is a screening test which carries an inherent false negative rate. These test results should be correlated with the patient's clinical findings and history. This Pap test was processed using an automated screening system. Technical cytopathology services provided by [facility], at [address] [place] [address] (CLIA # [id number]/Inez Crawford MD, Supervisor Cartography.) 03/08/2025 8:[address] [facility] Console Pap Interpretation Reported 03/08/2025 8:[address] [facility] Brushing/Spatula Cervix uteri structure / Unknown 03/05/2025 12:00 PM EDT 03/06/2025 6:27 AM EDT us Raymond Soto MD LAB CYTOLOGY ORDERABLES Final Result [facility]) [facility] [address] [place] [address], documented in this encounter Visit Diagnoses Diagnosis Encounter for gynecological examination (general) (routine) without abnormal findings documented in this encounter Care Teams Pattern Grader Supervisor Relationship Specialty Start Date End Date Darrick Hamilton MD [address] [place] [address] PCP - General Internal Medicine 11/15/24 documented as of this encounter
--- OUTSIDE RECORDS SUMMARY | 2025-07-04 09:06 | XMS_ITS | Patient Health Record ---
Author Organization [facility] Address [address] [place] [address] Care Team Providers Care Director Technical Name Role Phone Tavon Cochran Unavailable [phone] Scotty PINEDA, Shashank Unavailable Unavailable Reason For Referral No Information Medications Medication SIG (Take, Route, Frequency, Duration) Notes Start Date End Date Status Vitamin D3 (cholecalciferol (vitamin d3)) 09/06/2012 Active Tylenol (acetaminophen) 09/06/2012 Active pravastatin 09/06/2012 Active Ocuvite (vit c-vit [id number]) 09/06/2012 Active hydroCHLOROthiazide 12.5 MG 1 tablet [...] W/U Status Risk Notes Problem Allergic rhinitis (29133515) 477.9-Rhinitis Allergic (477.9) 09/06/2012 Active confirmed Problem Bleeding from nose (finding) (935136595) 784.7-Epistaxi s (784.7) 09/06/2012 Active confirmed Plan Of Treatment No Information Insurance Providers Payer Name Payer Address Payer Phone Subscriber Number Group Number Insured Name Patient Relationship to Insured Coverage Start Date Coverage End Date Medicare Part B [employer] [address] [place] [phone] [id number] Kaitlyn Sotelo Self - patient is the insured [facility] [address] [address] [place] [address] [id number] Kaitlyn Sotelo Self - patient is the insured Medical (General) History Surgical History Surgery Date(Month/Year) Skin Cancer Removed Hernia repair Tonsillectomy gall bladder Parathyroidectomy
== END 2025-07-04 08:54 | disposition home or self-care (01) ==
LOC: HO.ENCR 08:42
PROVIDERS: PCP Internal Medicine; Visit Provider Student in an Organized Health Care Education/Training Program
DX: M81.0 Age-related osteoporosis without current pathological fracture (principal)

== ENCOUNTER → 2025-07-04 08:41 | Outpatient (BNVA) | payer MEDICARE, OTHER, SELFPAY | PROVIDERS: PCP Internal Medicine; Visit Provider Student in an Organized Health Care Education/Training Program | DX: M81.0 Age-related osteoporosis without current pathological fracture (principal) | CPT/HCPCS: 96372; J0897 ==